=== PATIENT | male | born 1990 | race Caucasian/White ===

== ENCOUNTER 2023-07-03 16:29 | Observation (INO) ==
--- NOTE | 2023-07-03 17:39 | Emergency Department Note ---
History of Present Illness General Chief complaint: Skin Problem Stated complaint: BESHETS DISEASE/FLAIR, MOUTH/SKIN SORES, PEALING Time Seen by Provider: 07/03/23 17:25 History of Present Illness Maximum Pain Intensity: 6 This is a 32-year-old male that presents to the emergency department via private vehicle with complaints of "Behcet's disease/flare, mouth/skin ulcers/sores, peeling". 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 He states his first episode was at age 22, about 10 years ago. He states that initially he was evaluated and then subsequently sent to [facility] where he was hospitalized for about a week. Then, he notes a similar episode in 2020 and was evaluated in the [facility] system and states he was then formally diagnosed with Behcet's. He states he was fine up until 2 days ago he began with rash and sores in his mouth followed by genital area. He notes this is similar to previous about 10 years ago. However he notes this seems to be worsening now throughout the groin area as well as now on his arms, legs, abdomen, back and onto his face. He states he was at [place] emergency department about 2 days ago and started on oral prednisone. Last dose of prednisone was earlier today. He notes no improvement of symptoms, rather progression of symptoms. He denies any fevers but does note nausea and decreased appetite over the past few days. Patient denies any pertinent past medical history, surgeries or allergies. Patient denies any alcohol use. He denies any tobacco use other than vape. He denies any IV drug use. In reviewing analgesia options with the patient, I did review the patient's medication fill history and Suboxone was noted. I had a thorough review with the patient regarding this. He notes he was just released from incarceration about a week ago. He notes that he has not been on Suboxone for several days noting his nausea and unable to eat/drink secondary to his mouth sores. 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 Home Medications Medication Instructions Recorded Confirmed Type buprenorphine 8 mg-naloxone 2 mg 1 film sublingual BID 07/03/23 07/03/23 History sublingual film dextroamphetamine-amphetamine 20 20 mg PO BID 07/03/23 07/03/23 History mg tablet gabapentin 300 mg capsule 300 mg PO TID 07/03/23 07/03/23 History (Neurontin) guanfacine 2 mg tablet 2 mg PO BID 07/03/23 07/03/23 History oxcarbazepine 600 mg tablet 600 mg PO BID 07/03/23 07/03/23 History prednisone 20 mg tablet 60 mg PO DAILY 07/03/23 07/03/23 History Allergies Allergy/AdvReac Type Severity Reaction Status Date / Time tramadol [From Ultram] Allergy Intermediate HIVES/NAUSE Verified 07/03/23 19:32 A Past Med/Surg History Problem List (Updated 07/04/23 @ 00:46 by Francisco Wood PA-C) Skin lesions (Acute) Skin lesion Social History Smoking Status: Current every day smoker Tobacco Type: E-cigarettes / Vaping Second Hand Exposure: No; Do You Dip or Chew Tobacco: No; Hx Alcohol Use: No Hx Substance Use: Yes Last Used Substance: Days (ago) Substance Use Type Other:: Marijuana Vape Preferred Language: Upper Sorbian Communication Ability: Effective Grating Machine Operator Required: No Beliefs That Will Affect Care: None Current Living Situation: Significant Other Feels Safe at Home: Yes Safety Concerns: Feels Safe At This Time Assistive Devices: None Review of Systems A total of 10 systems reviewed and were otherwise negative Physical Exam Vital Signs Vital Signs - 24 hr 07/03/23 16:35 07/03/23 17:05 07/03/23 17:16 Temperature 36.6 C Temperature Source Temporal Artery Scan Pulse Rate 60 49 L Pulse Rate [Apical] 48 L Pulse Rhythm [Apical] Pulse Strength [Apical] Respiratory Rate 18 18 Respiratory Effort / Characteristics Non-Labored Non-Labored Spontaneous Respiratory Depth Normal Normal Respiratory Pattern Regular Regular Blood Pressure 120/74 Blood Pressure [Right Arm] 125/77 Blood Pressure Mean 89 Blood Pressure Mean [Right Arm] 93 Blood Pressure Position [Right Arm] Lying Pulse Oximetry 98 100 Oxygen Delivery Method Room Air Room Air Sepsis Recent Fever Within 48 Hours No Sepsis New/Unexplained Change in Mental Status N/A Sepsis Action Taken by Nursing No Action Required 07/03/23 18:33 07/03/23 20:00 Temperature Temperature Source Pulse Rate Pulse Rate [Apical] 51 L 48 L Pulse Rhythm [Apical] Regular Pulse Strength [Apical] Normal Respiratory Rate 18 16 Respiratory Effort / Characteristics Non-Labored Spontaneous Non-Labored Spontaneous Respiratory Depth Normal Normal Respiratory Pattern Regular Regular Blood Pressure Blood Pressure [Right Arm] 146/92 H 120/52 L Blood Pressure Mean Blood Pressure Mean [Right Arm] 110 74 Blood Pressure Position [Right Arm] Lying Pulse Oximetry 99 99 Oxygen Delivery Method Room Air Room Air Sepsis Recent Fever Within 48 Hours Sepsis New/Unexplained Change in Mental Status Sepsis Action Taken by Nursing VITAL SIGNS - Vital signs and nursing notes were reviewed. Borderline bradycardic at 49, otherwise stable. GENERAL -32-year-old male is appearing stated age who is in no acute distress. Communicates well with provider and answers questions appropriately. SKIN -erythematous, slightly raised diffuse regions overlying the penis, scrotum, bilateral inguinal regions extending to the thighs, rectal region. Smaller diffuse erythematous regions also present on the ventral forearms, medial feet/ankle regions, and a small area just to the lateral portion of the left eye. HEAD - NC/AT. EYES - PERRL with EOMI bilaterally. Sclera anicteric. EARS - No deformities of external structures noted on gross examination bilaterally. External auditory canals without discharge or otorrhea. Tympanic membranes pearly corona without retraction or bulging. No fluid or purulent material visualized behind the TM. Handle of malleus, umbo, cone of light, pars tensa/flaccid all easily visualized. NOSE - Midline and without cyanosis. No epistaxis or purulent drainage noted. Septum midline without deviation or septal hematoma noted. MOUTH/OROPHARYNX - Without perioral cyanosis. Buccal mucosa pink and moist and without leukoplakia. Tongue midline with equal elevation of palate bilaterally. No tonsillar hypertrophy, erythema, or exudates noted. Fair dentition noted. NECK - Neck with FROM. Supple to palpation. Mild bilateral lymphadenopathy noted. No nuchal rigidity. LUNGS - Chest wall symmetric without accessory muscle use, intercostals retractions, or central cyanosis. Normal vesicular breath sounds CTA B/L. No wheezes, rales, or rhonchi appreciated. CARDIAC - RRR with S1/S2. No murmur, rubs, or gallops appreciated. ABDOMEN - Abdominal contour normal without pulsations or visible masses. BS normoactive all four quadrants. No tenderness, palpable masses, hepatosplenomegaly, or ascites noted. EXTREMITIES - No clubbing or peripheral cyanosis. +5/5 strength noted in UE/LE bilaterally. NEUROLOGIC - Cranial nerves II through XII grossly intact. PSYCH - A&O, and cooperates fully with examiner. Pt is very pleasant and interacts well with examiner. Course Administered Medications Amphetamine/Dextroamphetamine (Dextroamphetamine/Amphetamine Ir 20 Mg Tab) 20 mg PO BID [facility] Stop: 07/17/23 22:46 Last Admin: 07/03/23 23:58 Dose: 20 mg Documented By: CHEN Buprenorphine/Naloxone (Buprenorphine/Naloxone 8/2 Mg Tab) 1 tab SL BID [facility] Stop: 08/02/23 22:46 Last Admin: 07/03/23 23:58 Dose: Not Given Documented By: CHEN Gabapentin (Gabapentin 300 Mg Cap) 300 mg PO TID [facility] Stop: 08/02/23 22:46 Last Admin: 07/03/23 23:43 Dose: 300 mg Documented By: CHEN Guanfacine HCl (Guanfacine Hcl 1 Mg Tab) 2 mg PO BID [facility] Stop: 08/02/23 22:46 Last Admin: 07/03/23 23:44 Dose: 2 mg Documented By: CHEN Hydromorphone HCl (Hydromorphone Inj 0.5 Mg/0.5 Ml Syr) 0.5 mg IV Q6H PRN PRN Reason: Severe Pain (Scale 7, 8, 9,10) Stop: 07/17/23 22:46 Last Admin: 07/03/23 23:58 Dose: 0.5 mg Documented By: CHEN Sodium Chloride (Nss) 1,000 mls @ 80 mls/hr IV .[id number] [facility] Stop: 07/04/23 11:16 Last Admin: 07/03/23 23:38 Dose: 80 mls/hr Documented By: CHEN Oxcarbazepine (Oxcarbazepine 150 Mg Tablet) 600 mg PO BID [facility] Stop: 08/02/23 22:46 Last Admin: 07/03/23 23:44 Dose: 600 mg Documented By: CHEN Triamcinolone Acetonide (Triamcinolone Acet 0.1% Cr 80 Gm Tube) 1 appln EXT BID [facility] Stop: 08/02/23 22:46 Last Admin: 07/03/23 23:42 Dose: 1 appln Documented By: CHEN Discontinued Medications Sodium Chloride (Nss) 1,000 mls @ 999 mls/hr IV .Q1H1M [facility] Stop: 07/03/23 18:45 Last Infusion: 07/03/23 19:34 Dose: Infused Documented By: Admin: 07/03/23 18:27 Dose: 999 mls/hr Documented By: CATIE Famotidine (Pepcid 20mg Iv Push) 20 mg in 5 mls @ 2.5 mls/min IV NOW STA Stop: 07/03/23 17:43 Last Admin: 07/03/23 18:26 Dose: 2.5 mls/min Documented By: CATIE Ceftriaxone Sodium (Rocephin) 2,000 mg in 50 mls @ 100 mls/hr IV NOW STA Stop: 07/03/23 19:50 Last Infusion: 07/03/23 20:20 Dose: Infused Documented By: Admin: 07/03/23 19:47 Dose: 100 mls/hr Documented By: BERNARDO Ketorolac Tromethamine (Ketorolac Tromethamine 15 Mg/Ml Vial) 10 mg IV NOW ONE Stop: 07/03/23 17:57 Last Admin: 07/03/23 18:25 Dose: 10 mg Documented By: CATIE Morphine Sulfate (Morphine Sulfate 4 Mg/Ml 1 Ml Carp\\Vial) 4 mg IV NOW STA Stop: 07/03/23 17:57 Last Admin: 07/03/23 18:26 Dose: 4 mg Documented By: CATIE Ondansetron HCl (Ondansetron Inj 2 Mg/Ml 2 Ml Vial) 4 mg IV NOW STA Stop: 07/03/23 17:57 Last Admin: 07/03/23 18:25 Dose: 4 mg Documented By: CATIE Medical Decision Making Laboratory Data 07/03/23 18:10 07/03/23 18:10 Lab Results 07/03/23 07/03/23 Range/Units 18:10 18:31 WBC 8.94 (4.8-10.8) K/ul RBC 4.43 L (4.70-6.10) M/uL Hgb 13.0 L (14.0-18.0) g/dl Hct 37.6 L (42.0-52.0) % MCV 84.9 (80.0-100.0) fL MCH 29.3 (25.0-34.0) pg MCHC 34.6 (32.0-36.0) g/dL RDW Std Deviation 41.4 (36.4-46.3) fL RDW Coeff of Lauro 13.2 (11.5-14.5) % Plt Count 267 (130-400) K/uL MPV 9.0 L (9.4-12.4) fL Immature Gran % (Auto) 0.3 % Neut % (Auto) 82.6 % Lymph % (Auto) 10.3 % [place] % (Auto) 6.6 % Eos % (Auto) 0.1 % Baso % (Auto) 0.1 % Neut # (Auto) 7.38 H (1.40-6.50) K/uL Lymph # (Auto) 0.92 L (1.20-3.40) K/uL [place] # (Auto) 0.59 (0.11-0.59) K/uL Eos # (Auto) 0.01 (0.00-0.50) K/uL Baso # (Auto) 0.01 (0.00-0.20) K/uL Immature Gran # (Auto) 0.03 (0.01-0.20) K/uL PT 10.9 (9.0-12.0) Seconds INR 1.0 (0.9-1.1) APTT 25 (21-31) Seconds PTT Ratio 0.9 Sodium 138 (136-145) mmol/L Potassium 3.6 (3.5-5.1) mmol/L Chloride 102 (98-107) mmol/L Carbon Dioxide 28 (21-32) mmol/L Anion Gap 8 (3-11) BUN 15 (6-23) mg/dl Creatinine 0.77 (0.6-1.4) mg/dl Est Cr Clr Drug Dosing 130.8 ml/min Est GFR ( Amer) 137.2 ml/min Est GFR (Non-Af Amer) 118.4 ml/min BUN/Creatinine Ratio 19.5 (10-20) Glucose 117 H (70-99(Fasting)) mg/dl Lactate 1.4 (0.4-2.0) mmol/L Calcium 9.4 (8.6-10.3) mg/dl Total Bilirubin 0.3 (0.2-1.0) mg/dl AST 21 (13-39) U/L ALT 34 (7-52) U/L Alkaline Phosphatase 60 (34-104) U/L Total Protein 7.1 (6.0-8.3) gm/dl Albumin 4.7 (3.4-5.0) gm/dl Globulin 2.4 L (2.5-4.0) gm/dl Albumin/Globulin Ratio 2.0 (0.9-2) Procalcitonin 0.02 (0-0.5) ng/ml Urine Color Yellow Urine Appearance Clear (Clear) Urine pH 7.0 (4.5-7.5) Ur Specific [place] 1.011 (1.000-1.030) Urine Protein Negative (Negative) Urine Glucose (UA) Negative (Negative) Urine Ketones Negative (Negative) Urine Blood Negative (Negative) Urine Nitrite Negative (Negative) Urine Bilirubin Negative (Negative) Urine Urobilinogen Negative (Negative) Ur Leukocyte Esterase Negative (Negative) Adenovirus (PCR) Not Detected (NotDetected) B. pertussis DNA (PCR) Not Detected (NotDetected) B.parapertussis DNA PCR Not Detected (NotDetected) Lyme Disease Screen Negative (Negative) C. pneumoniae DNA (PCR) Not Detected (NotDetected) Coronavirus OC43 (PCR) Not Detected (NotDetected) Coronavirus HKU1 (PCR) Not Detected (NotDetected) Coronavirus 229E (PCR) Not Detected (NotDetected) SARS-CoV-2 (PCR) Not Detected (NotDetected) Coronavirus NL63 (PCR) Not Detected (NotDetected) Human Metapneumovir PCR Not Detected (NotDetected) Influenza Type A (PCR) Not Detected (NotDetected) Influenza Type B (PCR) Not Detected (NotDetected) M. pneumoniae (PCR) Not Detected (NotDetected) Parainfluenza 1 (PCR) Not Detected (NotDetected) Parainfluenza 2 (PCR) Not Detected (NotDetected) Parainfluenza 3 (PCR) Not Detected (NotDetected) Parainfluenza 4 (PCR) Not Detected (NotDetected) RSV (PCR) Not Detected (NotDetected) Entero/Rhino (PCR) Not Detected (NotDetected) MDM Narrative Patient was seen and evaluated as above in room B09. Review was performed of triage nursing notes and vital signs. No previous visits for review in the EMR at time of evaluation. Patient presents to us today for evaluation of erythematous rashes in the groin area, mouth, as well as on the extremities involving also abdomen/back. He notes a history of Behcet's and this feels similar but perhaps worse than his previous. He was started on prednisone about 2 days ago at [place] [facility] and notes worsening symptoms. I did list the help of our network account manager to try and access the [facility] record regarding the patient's inpatient hospitalization about 10 years ago. Unfortunately as of 1830 p.m. on 07/03/2023 they note that the remote access to the [employer] system at this time is still down and not able to be accessed. Later in the patient stay was able to access the record and did review patient's visit from May 27 when he was seen for similar at [facility]. There is no formal diagnosis seen in the EMR at that time for Behcet's. Patient states that it was later when symptoms occurred again in 2020 in the [facility] system that he was formally diagnosed. Patient appears to be on a regimen currently of dextroamphetamineamphetamine, gabapentin, guanfacine, hydroxyzine, oxcarbazepine as well as recent addition of prednisone. There is buprenorphinenaloxone films noted with a fill date of 06-28-2023 but the patient notes he has not taken this over the past few days secondary to his nausea and upset stomach with the associated rash that he believes is secondary to underlying Behcet's. I had a lengthy discussion with the patient regarding analgesia options. At this time through shared decision making we will proceed with IV Toradol, IV morphine, he was also given IV Pepcid noting the recent steroid use and medications today. Patient was hydrated with IV fluids. He was given IV Zofran for nausea. Labs reveal no leukocytosis. Minor anemia noted with hemoglobin 13.0. Coags normal. No emergent metabolic disturbance. Mild hyperglycemia 117 procal 0.02. Lactate normal. Urinalysis negative for infection. Bio fire panel negative. Consent was obtained from the patient and with male marble rubber Valentin VELAZQUEZ present the genital area was further visually inspected and there was a lesion to the right midshaft region of the penis. This is more of an ulcerative type lesion and was swabbed and sent for HSV culture/type. Test pending at this time. Blood cultures pending as well. I am also concerned about a secondary bacterial infection in the groin area therefore we will start the patient on IV ceftriaxone. No evidence for SJS/TENS at the present time. This certainly may be Behcet's. No evidence of Jackelin gangrene at the present time. At this time I do believe that further evaluation and management is warranted in the inpatient setting. Case discussed with the hospitalist service. Please refer to further documentation regarding his stay. Case was discussed with the attending physician. GCS: 15 In the evaluation and treatment of this patient the following differential diagnoses were entertained: Herpes, zoster, SJS, TENS, cellulitis, fungal infection, Bechet's, among others. Impression & Plan Skin lesions Discharge Plan Visit Data Chief Complaint: Skin Problem Stated Complaint: BESHETS DISEASE/FLAIR, MOUTH/SKIN SORES, PEALING ED Provider: Juanita Rodriguez ED Midlevel Provider: Francisco Wood Discharge Problem: Skin lesions Patient Disposition: Admitted As Inpatient Condition: Good Discharge Instructions Interventions: ED Discharge Assessment Last Done: 07/03/23 21:58
[2023-07-03 18:25] LABS: Basophils # (auto) 0.01 K/uL (0.00-0.20); Basophils % (auto) 0.1 %; Eosinophils # (auto) 0.01 K/uL (0.00-0.50); Eosinophils % (auto) 0.1 %; Hematocrit (blood only) 37.6 % (42.0-52.0); Immature Granulocytes # (auto) 0.03 K/uL (0.01-0.20); Immature Granulocytes % (auto) 0.3 %; Lymphocytes # (auto) 0.92 K/uL (1.20-3.40); Lymphocytes % (auto) 10.3 %; Mean Corpuscular Hemoglobin 29.3 pg (25.0-34.0); Mean Corpuscular Hgb Conc 34.6 g/dL (32.0-36.0); Mean Corpuscular Volume 84.9 fL (80.0-100.0); Monocytes # (auto) 0.59 K/uL (0.11-0.59); Monocytes % (auto) 6.6 %; Neutrophils # (auto) 7.38 K/uL (1.40-6.50); Neutrophils % (auto) 82.6 %; Platelet Count 267 K/uL (130-400); RDW Coefficient of Variation 13.2 % (11.5-14.5); RDW Standard Deviation 41.4 fL (36.4-46.3); Red Blood Count 4.43 M/uL (4.70-6.10); White Blood Count 8.94 K/ul (4.8-10.8)
[2023-07-03] MEDS: KETOROLAC TROMETHAMINE 15 MG/ML VIAL IV ONE (18:25)
[2023-07-03] MEDS: ONDANSETRON INJ 2 MG/ML 2 ML VIAL IV STA (18:25)
[2023-07-03] MEDS: FAMOTIDINE 20MG IV PUSH 20 MG/5 ML SYR IV STA (18:26)
[2023-07-03] MEDS: MoRPHine SULFATE 4 MG/ML 1 ML CARP\\VIAL IV STA (18:26)
[2023-07-03] MEDS: SODIUM CHLORIDE 0.9% 1,000 ML IV SCH ×2 (18:27→23:38)
[2023-07-03 18:41] LABS: Albumin Level 4.7 gm/dl (3.4-5.0); BUN Creatinine Ratio 19.5 (10-20); Bilirubin,Total 0.3 mg/dl (0.2-1.0); Calcium 9.4 mg/dl (8.6-10.3); Creatinine Clr Calc Pharmacy 130.8 ml/min; Est GFR (African American) 137.2 ml/min; Est GFR (Non-African American) 118.4 ml/min; Globulin 2.4 gm/dl (2.5-4.0); Potassium 3.6 mmol/L (3.5-5.1); Total Protein 7.1 gm/dl (6.0-8.3)
[2023-07-03 18:42] LABS: Appearance Urine Clear (Clear); Bilirubin Urine Negative (Negative); Blood Urine Negative (Negative); Color Urine Yellow; Glucose Urine UA Negative (Negative); Ketones Urine Negative (Negative); Leukocyte Esterase Urine Negative (Negative); Nitrite Urine Negative (Negative); Protein Urine Negative (Negative); Specific Gravity Urine 1.011 (1.000-1.030); Urobilinogen Urine Negative (Negative)
[2023-07-03 18:48] LABS: Procalcitonin 0.02 ng/ml (0-0.5)
[2023-07-03 18:56] LABS: Partial Thromboplastin Ratio 0.9; Partial Thromboplastin Time 25 Seconds (21-31); Prothrombin Time 10.9 Seconds (9.0-12.0)
[2023-07-03 19:14] LABS: Lyme Screen Rflx Confirmation Negative (Negative)
[2023-07-03 19:29] LABS: Adenovirus PCR Not Detected (NotDetected); Bordetella parapertussis PCR Not Detected (NotDetected); Bordetella pertussis PCR Not Detected (NotDetected); Chlamydia pneumoniae PCR Not Detected (NotDetected); Coronavirus 229E PCR Not Detected (NotDetected); Coronavirus CoV-2 (COVID19)PCR Not Detected (NotDetected); Coronavirus HKU1 PCR Not Detected (NotDetected); Coronavirus NL63 PCR Not Detected (NotDetected); Coronavirus OC43PCR Not Detected (NotDetected); Human Metapneumovirus PCR Not Detected (NotDetected); Influenza A PCR Not Detected (NotDetected); Influenza B PCR Not Detected (NotDetected); Mycoplasma pneumoniae PCR Not Detected (NotDetected); Parainfluenza Virus 1 PCR Not Detected (NotDetected); Parainfluenza Virus 2 PCR Not Detected (NotDetected); Parainfluenza Virus 3 PCR Not Detected (NotDetected); Parainfluenza Virus 4 PCR Not Detected (NotDetected); Respiratory Syncytial VirusPCR Not Detected (NotDetected); Rhinovirus/Enterovirus PCR Not Detected (NotDetected)
[2023-07-03] MEDS: cefTRIAXone SODIUM 2,000 MG/50 ML BAG IV STA (19:47)
--- NOTE | 2023-07-03 21:26 | History & Physical Report ---
Date of Service July 03, 2023 Assessment & Plan (1) Skin lesion: Plan: 32-year-old male with past medical history significant for stomatitis and mucositis, attention deficit disorder without hyperactivity, bipolar 1 disorder, with episode of depression, in 2013 patient was in the [place] for about a week for oral, genital and anal ulceration as well as rash on the abdomen, per rectally and in the inguinal creases. At the time workup with HSV, VZV PCR was negative and HIV was negative. BENJAMIN, anti-smooth muscle, antimitochondrial chondral negative, was treated with triamcinolone 0.1% ointment and rash also resolved. As per Dermatology notes at the time he had 4-5 outbreaks similar to this when he was 13 years old. As per dermatology notes at that time etiology was unclear. There was a thought that Behcet's was possibility and advised to return for another episode. And patient states had another episode in 2020 and but he went to [facility] because it was closer to him and he stated he was not diagnosed at that time. He was in senior living and was discharged from senior living 1 week ago. Since last 2 days again he developed oral lesions and also rash in the genital region and blotches in his extremities. He went to [facility] and was prescribed prednisone. Started prednisone but the rashes did not improve but got worse so she so he came here. Last time when he was in [place] he had painful bowel movements and odynophagia but right now he did not have those symptoms. He is able to eat okay. But he thinks the rash is worse. Denies any fevers. Micturating okay. Normal bowel movements. Denies blood in the stools. No abdominal pain. No chest pain or shortness of breath. No headache. No dizziness. No blurred visions. No earache or runny nose or sore throat. No cough. No nausea. Resting comfortably and hemodynamically stable.Patient denies any IV drug abuse. Patient is not concerned of any STDs. Skin lesions mainly involving genital region and also having oral lesions erythematous rash involving the genital region extending into the perianal region with some ulcers seen. blotches of erythematous rash also seen in lower extremities. had similar episode in 2013 and was in [place] and workup as mentioned HAP was unremarkable. There was consideration of Behcet's. States he had another episode in 2020. Went to [facility] and was prescribed prednisone but is not helping currently. Possible superimposed bacterial infection ,ER started Rocephin will be continued. ER sent for HSV studies which will be followed . Continue with prednisone. Triamcinolone cream skin and oral. Dermatology/ rheumatolgy consult for further recommendations. Monitor for response. Attention deficit disorder without hyperactivity. Bipolar disorder with episode of depression continue home medications DVT prophylaxis Lovenox disposition medical floor. History of Present Illness Chief Complaint: skin and oral lesions Primary Care Provider: ARIAS PCP 32-year-old male with past medical history significant for stomatitis and mucositis, attention deficit disorder without hyperactivity, bipolar 1 disorder, with episode of depression, in 2013 patient was in the [place] for about a week for oral, genital and anal ulceration as well as rash on the abdomen, per rectally and in the inguinal creases. At the time workup with HSV, VZV PCR was negative and HIV was negative. BENJAMIN, anti-smooth muscle, antimitochondrial chondral negative, was treated with triamcinolone 0.1% ointment and rash also resolved. As per Dermatology notes at the time he had 4-5 outbreaks similar to this when he was 13 years old. As per dermatology notes at that time etiology was unclear. There was a thought that Behcet's was possibility and advised to return for another episode. And patient states had another episode in 2020 and but he went to [facility] because it was closer to him and he stated he was not diagnosed at that time. He was in senior living and was discharged from senior living 1 week ago. Since last 2 days again he developed oral lesions and also rash in the genital region and blotches in his extremities. He went to [facility] and was prescribed prednisone. Started prednisone but the rashes did not improve but got worse so she so he came here. Last time when he was in [place] he had painful bowel movements and odynophagia but right now he did not have those symptoms. He is able to eat okay. But he thinks the rash is worse. Denies any fevers. Micturating okay. Normal bowel movements. Denies blood in the stools. No abdominal pain. No chest pain or shortness of breath. No heada brenna. No dizziness. No blurred visions. No earache or runny nose or sore throat. No cough. No nausea. Resting comfortably and hemodynamically stable.Patient denies any IV drug abuse. Patient is not concerned of any STDs. Past med history. As mentioned above past surgical history. States recently had a biopsy of bladder cyst and waiting for results. EGD with endoscopic ultrasound. Social history. states currently Not smoking. Currently vapes nicotine. Denies alcohol use. States he used to abuse opioids in the past but not since last 8 years. family history. Paternal grandmother had hypertension. Allergies Allergy/AdvReac Type Severity Reaction Status Date / Time tramadol [From Ultram] Allergy Intermediate HIVES/NAUSE Verified 07/03/23 19:32 A Home Medications Medication Instructions Recorded Confirmed Type buprenorphine 8 mg-naloxone 2 mg 1 film sublingual BID 07/03/23 07/03/23 History sublingual film dextroamphetamine-amphetamine 20 20 mg PO BID 07/03/23 07/03/23 History mg tablet gabapentin 300 mg capsule 300 mg PO TID 07/03/23 07/03/23 History (Neurontin) guanfacine 2 mg tablet 2 mg PO BID 07/03/23 07/03/23 History oxcarbazepine 600 mg tablet 600 mg PO BID 07/03/23 07/03/23 History prednisone 20 mg tablet 60 mg PO DAILY 07/03/23 07/03/23 History Past Med/Surg History Problem List (Updated 07/04/23 @ 00:46 by Francisco Wood PA-C) Skin lesions (Acute) Skin lesion Social History Smoking Status: Current every day smoker Tobacco Type: E-cigarettes / Vaping Second Hand Exposure: No; Do You Dip or Chew Tobacco: No; Hx Alcohol Use: No Hx Substance Use: Yes Last Used Substance: Days (ago) Substance Use Type Other:: Marijuana Vape Preferred Language: Romanian Communication Ability: Effective Outsole Beveler Required: No Beliefs That Will Affect Care: None Current Living Situation: Significant Other Feels Safe at Home: Yes Safety Concerns: Feels Safe At This Time Assistive Devices: None Review of Systems Review of Systems: All systems reviewed & are unremarkable except as noted in HPI & below Physical Exam Physical Exam: General- Not in distress Head- atraumatic Eyes- PERRL. ENT- oropharynx erythematous lesions seen o roof of the mouth Neck- supple, no JVD. Lungs- clear to auscultation no wheezing or crackles Heart- regular rhythm; no murmur, no gallop. Abdomen- normal bowel sounds, soft, nontender, no distensions Extremities- no pretibial edema, blotches of erythematous rash seen on feet and thigh region Neuro- alert, oriented ; PERRL, no facial palsy; no dysarthria; moves extremities. Skin- erythematous rash seen in groin and perineal/perianal region involving genital region with some ulcers seen. Blotches of erythematous rash seen on feet and thigh region Results & Data Results & Data Vital Signs (Past 12 Hours) Vital Signs Temp Pulse Pulse Resp BP BP Pulse Ox 07/03/23 20:00 48 L 16 120/52 L 99 07/03/23 18:33 51 L 18 146/92 H 99 07/03/23 17:16 49 L 07/03/23 17:05 48 L 18 125/77 100 07/03/23 16:35 36.6 C 60 18 120/74 98 O2 Del Method 07/03/23 20:00 Room Air 07/03/23 18:33 Room Air 07/03/23 17:16 07/03/23 17:05 Room Air 07/03/23 16:35 Room Air Diagnostic Findings Laboratory Results WBC 8.94 K/ul (4.8-10.8) 07/03/23 18:10 RBC 4.43 M/uL (4.70-6.10) L 07/03/23 18:10 Hgb 13.0 g/dl (14.0-18.0) L 07/03/23 18:10 Hct 37.6 % (42.0-52.0) L 07/03/23 18:10 MCV 84.9 fL (80.0-100.0) 07/03/23 18:10 MCH 29.3 pg (25.0-34.0) 07/03/23 18:10 MCHC 34.6 g/dL (32.0-36.0) 07/03/23 18:10 RDW Std Deviation 41.4 fL (36.4-46.3) 07/03/23 18:10 RDW Coeff of Lauro 13.2 % (11.5-14.5) 07/03/23 18:10 Plt Count 267 K/uL (130-400) 07/03/23 18:10 MPV 9.0 fL (9.4-12.4) L 07/03/23 18:10 Immature Gran % (Auto) 0.3 % 07/03/23 18:10 Neut % (Auto) 82.6 % 07/03/23 18:10 Lymph % (Auto) 10.3 % 07/03/23 18:10 [place] % (Auto) 6.6 % 07/03/23 18:10 Eos % (Auto) 0.1 % 07/03/23 18:10 Baso % (Auto) 0.1 % 07/03/23 18:10 Neut # (Auto) 7.38 K/uL (1.40-6.50) H 07/03/23 18:10 Lymph # (Auto) 0.92 K/uL (1.20-3.40) L 07/03/23 18:10 [place] # (Auto) 0.59 K/uL (0.11-0.59) 07/03/23 18:10 Eos # (Auto) 0.01 K/uL (0.00-0.50) 07/03/23 18:10 Baso # (Auto) 0.01 K/uL (0.00-0.20) 07/03/23 18:10 Immature Gran # (Auto) 0.03 K/uL (0.01-0.20) 07/03/23 18:10 PT 10.9 Seconds (9.0-12.0) 07/03/23 18:10 INR 1.0 (0.9-1.1) 07/03/23 18:10 APTT 25 Seconds (21-31) 07/03/23 18:10 PTT Ratio 0.9 07/03/23 18:10 Sodium 138 mmol/L (136-145) 07/03/23 18:10 Potassium 3.6 mmol/L (3.5-5.1) 07/03/23 18:10 Chloride 102 mmol/L (98-107) 07/03/23 18:10 Carbon Dioxide 28 mmol/L (21-32) 07/03/23 18:10 Anion Gap 8 (3-11) 07/03/23 18:10 BUN 15 mg/dl (6-23) 07/03/23 18:10 Creatinine 0.77 mg/dl (0.6-1.4) 07/03/23 18:10 Est Cr Clr Drug Dosing 130.8 ml/min 07/03/23 18:10 Est GFR ( Amer) 137.2 ml/min 07/03/23 18:10 Est GFR (Non-Af Amer) 118.4 ml/min 07/03/23 18:10 BUN/Creatinine Ratio 19.5 (10-20) 07/03/23 18:10 Glucose 117 mg/dl (70-99(Fasting)) H 07/03/23 18:10 Lactate 1.4 mmol/L (0.4-2.0) 07/03/23 18:10 Calcium 9.4 mg/dl (8.6-10.3) 07/03/23 18:10 Total Bilirubin 0.3 mg/dl (0.2-1.0) 07/03/23 18:10 AST 21 U/L (13-39) 07/03/23 18:10 ALT 34 U/L (7-52) 07/03/23 18:10 Alkaline Phosphatase 60 U/L (34-104) 07/03/23 18:10 Total Protein 7.1 gm/dl (6.0-8.3) 07/03/23 18:10 Albumin 4.7 gm/dl (3.4-5.0) 07/03/23 18:10 Globulin 2.4 gm/dl (2.5-4.0) L 07/03/23 18:10 Albumin/Globulin Ratio 2.0 (0.9-2) 07/03/23 18:10 Procalcitonin 0.02 ng/ml (0-0.5) 07/03/23 18:10 Urine Color Yellow 07/03/23 18:31 Urine Appearance Clear (Clear) 07/03/23 18:31 Urine pH 7.0 (4.5-7.5) 07/03/23 18:31 Ur Specific [place] 1.011 (1.000-1.030) 07/03/23 18:31 Urine Protein Negative (Negative) 07/03/23 18:31 Urine Glucose (UA) Negative (Negative) 07/03/23 18:31 Urine Ketones Negative (Negative) 07/03/23 18:31 Urine Blood Negative (Negative) 07/03/23 18: Urine Nitrite Negative (Negative) 07/03/23 18:31 Urine Bilirubin Negative (Negative) 07/03/23 18:31 Urine Urobilinogen Negative (Negative) 07/03/23 18:31 Ur Leukocyte Esterase Negative (Negative) 07/03/23 18:31 Adenovirus (PCR) Not Detected (NotDetected) 07/03/23 18:31 B. pertussis DNA (PCR) Not Detected (NotDetected) 07/03/23 18:31 B.parapertussis DNA PCR Not Detected (NotDetected) 07/03/23 18:31 Lyme Disease Screen Negative (Negative) 07/03/23 18:10 C. pneumoniae DNA (PCR) Not Detected (NotDetected) 07/03/23 18:31 Coronavirus OC43 (PCR) Not Detected (NotDetected) 07/03/23 18:31 Coronavirus HKU1 (PCR) Not Detected (NotDetected) 07/03/23 18:31 Coronavirus 229E (PCR) Not Detected (NotDetected) 07/03/23 18:31 SARS-CoV-2 (PCR) Not Detected (NotDetected) 07/03/23 18:31 Coronavirus NL63 (PCR) Not Detected (NotDetected) 07/03/23 18:31 Human Metapneumovir PCR Not Detected (NotDetected) 07/03/23 18:31 Influenza Type A (PCR) Not Detected (NotDetected) 07/03/23 18:31 Influenza Type B (PCR) Not Detected (NotDetected) 07/03/23 18:31 M. pneumoniae (PCR) Not Detected (NotDetected) 07/03/23 18:31 Parainfluenza 1 (PCR) Not Detected (NotDetected) 07/03/23 18:31 Parainfluenza 2 (PCR) Not Detected (NotDetected) 07/03/23 18:31 Parainfluenza 3 (PCR) Not Detected (NotDetected) 07/03/23 18:31 Parainfluenza 4 (PCR) Not Detected (NotDetected) 07/03/23 18:31 RSV (PCR) Not Detected (NotDetected) 07/03/23 18:31 Entero/Rhino (PCR) Not Detected (NotDetected) 07/03/23 18:31 Code Status & VTE Plan VTE Prophylaxis Plan VTE Prophylaxis will be ordered: Yes
[2023-07-03] MEDS ORDERED: POLYETHYLENE (MIRALAX) 17 GM PACK PO PRN (22:47)
[2023-07-03] MEDS ORDERED: ACETAMINOPHEN 325 MG TAB PO PRN (22:47)
[2023-07-03] MEDS: TRIAMCINOLONE ACET 0.1% CR 80 GM TUBE EXT SCH (23:42)
[2023-07-03] MEDS: GABAPENTIN 300 MG CAP PO SCH (23:43)
[2023-07-03] MEDS: guanFACINE HCL 1 MG TAB PO SCH (23:44)
[2023-07-03] MEDS: OXcarbazepine 150 MG TABLET PO SCH (23:44)
[2023-07-03] MEDS: DEXTROAMPHETAMINE/AMPHETAMINE IR 20 MG TAB PO SCH (23:58)
[2023-07-03] MEDS: HYDROmorphone INJ 0.5 MG/0.5 ML SYR IV PRN (23:58)
[2023-07-03] MEDS: BUPRENORPHINE/NALOXONE 8/2 MG TAB SL SCH (23:58)
[2023-07-04 06:18] LABS: Basophils # (auto) 0.02 K/uL (0.00-0.20); Basophils % (auto) 0.2 %; Eosinophils # (auto) 0.33 K/uL (0.00-0.50); Eosinophils % (auto) 3.4 %; Hematocrit (blood only) 33.1 % (42.0-52.0); Hemoglobin 11.2 g/dl (14.0-18.0); Immature Granulocytes # (auto) 0.02 K/uL (0.01-0.20); Immature Granulocytes % (auto) 0.2 %; Lymphocytes # (auto) 2.46 K/uL (1.20-3.40); Lymphocytes % (auto) 25.5 %; Mean Corpuscular Hemoglobin 28.8 pg (25.0-34.0); Mean Corpuscular Hgb Conc 33.8 g/dL (32.0-36.0); Mean Corpuscular Volume 85.1 fL (80.0-100.0); Mean Platelet Volume 9.5 fL (9.4-12.4); Monocytes # (auto) 1.14 K/uL (0.11-0.59); Monocytes % (auto) 11.8 %; Neutrophils # (auto) 5.68 K/uL (1.40-6.50); Neutrophils % (auto) 58.9 %; Platelet Count 245 K/uL (130-400); RDW Coefficient of Variation 13.2 % (11.5-14.5); RDW Standard Deviation 41.6 fL (36.4-46.3); Red Blood Count 3.89 M/uL (4.70-6.10); White Blood Count 9.65 K/ul (4.8-10.8)
[2023-07-04 06:29] LABS: BUN Creatinine Ratio 18.8 (10-20); Calcium 8.6 mg/dl (8.6-10.3); Creatinine Clr Calc Pharmacy 125.9 ml/min; Est GFR (African American) 135.1 ml/min; Est GFR (Non-African American) 116.6 ml/min; Magnesium 1.6 mg/dl (1.7-2.4); Potassium 3.5 mmol/L (3.5-5.1)
[2023-07-04] MEDS: ENOXAPARIN INJ 40 MG/0.4 ML SYR SQ SCH (07:53)
[2023-07-04] MEDS: predniSONE 20 MG TAB PO SCH (07:54)
[2023-07-04] MEDS: TRIAMCINOLONE ACET 0.1% ORABASE 5 GM TUBE MT SCH (07:56)
[2023-07-04] MEDS ORDERED: COLCHICINE 0.6 MG TAB PO SCH (09:30)
--- NOTE | 2023-07-04 12:03 | Discharge Summary ---
Discharge Summary Date of Service July 04, 2023 Notes For Next Care Provider Medication Changes From Visit -Colchicine 0.6 mg two times a day -Triamcinolone cream, please apply thin layer to lesions on skin -Triamcinolone dental paste, please apply to mouth lesions at bedtime -Dexamethasone swish a spit, please use as needed limiting to no more than 3 times a day -Topical lidocaine, please apply small amount to lesions (1-2 hours after topical steroid) for further pain relief -Keflex 1 tablet two times daily for superficial infection, take until all tablets are complete -Recommend over the counter Lotrimin or athlete's foot cream (clotrimazole or te rbinafine) for area of irritation on foot Please discontinue oral prednisone Admission HPI Per Admitting Provider 32-year-old male with past medical history significant for stomatitis and mucositis, attention deficit disorder without hyperactivity, bipolar 1 disorder, with episode of depression, in 2013 patient was in the [place] for about a week for oral, genital and anal ulceration as well as rash on the abdomen, per rectally and in the inguinal creases. At the time workup with HSV, VZV PCR was negative and HIV was negative. BENJAMIN, anti-smooth muscle, antimitochondrial chondral negative, was treated with triamcinolone 0.1% ointment and rash also resolved. As per Dermatology notes at the time he had 4-5 outbreaks similar to this when he was 13 years old. As per dermatology notes at that time etiology was unclear. There was a thought that Behcet's was possibility and advised to return for another episode. And patient states had another episode in 2020 and but he went to [facility] because it was closer to him and he stated he was not diagnosed at that time. He was in snf and was discharged from snf 1 week ago. Since last 2 days again he developed oral lesions and also rash in the genital region and blotches in his extremities. He went to [facility] and was prescribed prednisone. Started prednisone but the rashes did not improve but got worse so she so he came here. Last time when he was in [place] he had painful bowel movements and odynophagia but right now he did not have those symptoms. He is able to eat okay. But he thinks the rash is worse. Denies any fevers. Micturating okay. Normal bowel movements. Denies blood in the stools. No abdominal pain. No chest pain or shortness of breath. No headache. No dizziness. No blurred visions. No earache or runny nose or sore throat. No cough. No nausea. Resting comfortably and hemodynamically stable.Patient denies any IV drug abuse. Patient is not concerned of any STDs. Past med history. As mentioned above past surgical history. States recently had a biopsy of bladder cyst and wait ing for results. EGD with endoscopic ultrasound. Social history. states currently Not smoking. Currently vapes nicotine. Denies alcohol use. States he used to abuse opioids in the past but not since last 8 years. family history. Paternal grandmother had hypertension. Admission Exam Per Admitting Provider General- Not in distress Head- atraumatic Eyes- PERRL. ENT- oropharynx erythematous lesions seen o roof of the mouth Neck- supple, no JVD. Lungs- clear to auscultation no wheezing or crackles Heart- regular rhythm; no murmur, no gallop. Abdomen- normal bowel sounds, soft, nontender, no distensions Extremities- no pretibial edema, blotches of erythematous rash seen on feet and thigh region Neuro- alert, oriented ; PERRL, no facial palsy; no dysarthria; moves extremities. Skin- erythematous rash seen in groin and perineal/perianal region involving genital region with some ulcers seen. Blotches of erythematous rash seen on feet and thigh region Principal Dx & Hospital Course #1 = Principal Diagnosis (1) Skin lesion: Mr Weinberg is a 32-year-old male with past medical history significant for stomatitis and mucositis, attention deficit disorder without hyperactivity, bipolar 1 disorder, with episode of depression, and concern for Behcet's disease who is admitted for worsening aphthous ulcers of mouth/genitals. Per admitting hospitalist, "in 2013 patient was in the [place] for about a week for oral, genital and anal ulceration as well as rash on the abdomen, per rectally and in the inguinal creases. At the time workup with HSV, VZV PCR was negative and HIV was negative. BENJAMIN, anti-smooth muscle, antimitochondrial chondral negative, was treated with triamcinolone 0.1% ointment and rash also resolved. As per Dermatology notes at the time he had 4-5 outbreaks similar to this when he was 13 years old. As per dermatology notes at that time etiology was unclear. There was a thought that Behcet's was possibility and advised to return for another episode. And patient states had another episode in 2020 and but he went to [facility] because it was closer to him and he stated he was not diagnosed at that time. He was in snf and was discharged from snf 1 week ago. Since last 2 days again he developed oral lesions and also rash in the genital region and blotches in his extremities. He went to [facility] and was prescribed prednisone. Started prednisone but the rashes did not improve but got worse so she so he came here. Last time when he was in [place] he had painful bowel movements and odynophagia but right now he did not have those symptoms. He is able to eat okay. But he thinks the rash is worse. Denies any fevers. Micturating okay. Normal bowel movements. Denies blood in the stools. No abdominal pain. No chest pain or shortness of breath. No headache. No dizziness. No blurred visions. No earache or runny nose or sore throat. No cough. No nausea. Resting comfortably and hemodynamically stable.Patient denies any IV drug abuse. Patient is not concerned of any STDs." Dr. Murphy Avitia, Rheumatology, was contacted about case. Discussion of patient's symptoms and presentation was had. He recommended continuing triamcinolone topical as well as starting colchicine 0.6mg BID. Rheumatology will coordinate follow up appointment within a week with the patient. #Behcet's Disease, recurrent #Multiple aphtous ulcers of mouth/gentialia #Neuropathy erythematous rash involving the genital region extending into the perianal region with some ulcers seen. blotches of erythematous rash also seen in lower extremities. had similar episode in 2013 and was in [place] and workup as mentioned HAP was unremarkable. There was consideration of Behcet's. States he had another episode in 2020. Discontinued prednisone Start colchicine 0/6mg BID Continue triamcinolone topical Sent dexamethsone swish/spit given patient not sure if he can tolerate the texteure of dental paste -dental paste sent for qhs placement Keflex bid for 7 days for concren of superimposed cellulitis Recommended topical antifungal for foot concern Short course of PO oxycodone---patient with extensive open lesions in gluteal cleft/scrotum and pain management essential given areas of high friction, also prescribed topical lidocaine to aid in analgesia Follow up with Dr. Murphy Avitia OP On day of discharge, patient adamant to get home. Plan discussed in depth with patient. He verbalized understanding and reports eagerness to establish with [facility]. (2) Behcet recurrent disease: Discharge Exam ENMT multiple scattered lesions in mouth, on gums Cardiovascular RRR, no murmur, no edema Gastrointestinal (Abdomen) normal bowel sounds, soft, nontender, no hepatosplenomegaly Skin erythematous/violaceous lesions with ulceration of gluteal cleft extending to perinum and scrotum, lesions in inguinal folds Updated Medication List Medication Instructions Recorded Confirmed Type buprenorphine 8 mg-naloxone 2 mg 1 film sublingual BID 07/03/23 07/03/23 History sublingual film dextroamphetamine-amphetamine 20 20 mg PO BID 07/03/23 07/03/23 History mg tablet gabapentin 300 mg capsule 300 mg PO TID 07/03/23 07/03/23 History (Neurontin) guanfacine 2 mg tablet 2 mg PO BID 07/03/23 07/03/23 History oxcarbazepine 600 mg tablet 600 mg PO BID 07/03/23 07/03/23 History cephalexin 500 mg capsule 500 mg PO BID 7 days #14 caps 07/04/23 Rx colchicine 0.6 mg tablet (Colcrys) 0.6 mg PO BID #60 tabs 07/04/23 Rx dexamethasone 0.5 mg/5 mL oral 0.5 mg (5 mL) PO BID PRN mouth 07/04/23 Rx elixir sores #237 mL lidocaine 5 % topical ointment 1 applic topical BID 7 days #35.44 07/04/23 Rx grams oxycodone 10 mg tablet 10 mg PO Q12H #8 tabs 07/04/23 Rx triamcinolone acetonide 0.1 % 0.6 cm dental TID #5 grams 07/04/23 Rx dental paste triamcinolone acetonide 0.1 % 1 applic EXT QID #80 grams 07/04/23 Rx topical cream Hospital Stay Data Consultations 07/03/23 19:26 ED Decision to Admit Stat 07/04/23 09:15 Consult Rheumatology Routine Pending Results Patient Have Any Pending Studies at Discharge: No Discharge Instructions Given to Patient (Per Discharging Provider) You were admitted for acute flare of Behcet's disease. Discussion was had with Rheumatology, Dr Asad Avitia, who will work closely with you to help manage symptoms. His office will reach out to schedule with you. You will start the following: -Colchicine 0.6 mg two times a day -Triamcinolone cream, please apply thin layer to lesions on skin -Triamcinolone dental paste, please apply to mouth lesions at bedtime -Dexamethasone swish a spit, please use as needed limiting to no more than 3 times a day -Topical lidocaine, please apply small amount to lesions (1-2 hours after topical steroid) for further pain relief -Keflex 1 tablet two times daily for superficial infection, take until all tablets are complete -Recommend over the counter Lotrimin or athlete's foot cream (clotrimazole or terbinafine) for area of irritation on foot Please discontinue oral prednisone Total Time Total Time Spent Total Time Spent (In Minutes): 45
[2023-07-04] MEDS ORDERED: cefTRIAXone SODIUM 2,000 MG/50 ML BAG IV SCH (19:30)
== END 2023-07-04 12:06 | disposition home or self-care (01) | DRG 546 ==
LOC: ED 16:29 → 3E 20:56 → INTOOBSV 20:56 → 3E 21:58

== ENCOUNTER 2024-02-04 14:47 | Inpatient (IN) ==
[2024-02-04] MEDS ORDERED: VANCOMYCIN CONSULT ACTIVE PRN (15:07)
--- NOTE | 2024-02-04 15:11 | Emergency Department Note ---
Impression & Plan Rash, Skin lesions, Behcet recurrent disease ED Provider Note Provider: Cristiano Alonso MD CHIEF COMPLAINT: Skin ulcerations, mouth ulcers, pain HISTORY OF PRESENT ILLNESS: Patient is a 33-year-old gentleman history of Behcet's disease by report reporting worsening over the last several days with initial flare starting last week. Has been on prednisone and using some try similar on steroid cream to his face and genitals. She is worsening rash in his face with some draining blisters on the hands and feet as well as oral ulcerations on the soft palate making it difficult for him to eat or drink. He states is quite thirsty and his pain is severe. Has taken some ibuprofen at home. Has been taking the ibuprofen. Is scheduled to follow-up with [place] [facility] and [facility]ology locally but has not seen them recently. No clear fevers reported. Very painful significant wounds all over but particularly on the genitals where he says things seem to stick even towels or clothing and then rip off the skin when they come off. Denies diarrhea or nausea or significant abdominal pain. Does report he is been taking Bactrim recently. PAST MEDICAL HISTORY: As noted above MEDICATIONS: Reviewed home medications no longer on Suboxone. Chronically on Trileptal for mood stabilization SOCIAL HISTORY: Smoker PHYSICAL EXAM: GENERAL: alert and oriented groaning laying on the stretcher. Head: normocephalic and atraumatic EYES: No icterus or significant discharge. There is some ulcerations of the skin just lateral to the eyes. NECK: Trachea midline. ENT: Mucous membranes with some scattered ulcerations of the lips and significant erythema with some ulceration of the hard and soft palate. LUNGS: Airway patent. No retractions. Breath sounds clear HEART: Regular rate and rhythm. ABDOMEN: Soft and non-tender, without guarding or rebound. SKIN: Acyanotic, warm with desquamation/bulla to the bilateral hands and feet and some scattered areas of breakdown/crusting ulcerations on the neck right upper arm and significantly throughout the genital and scrotal region diffuse erythema. There are few annular lesions on the left thigh. EXTREMITIES: Without significant swelling. Skin rash as above. NEUROLOGICAL: No focal deficits and moves all extremities. No aphasia. No facial droop or slurred speech. Normal strength and tone in the extremities. Sensation to gross touch normal. PDMP was checked without noted issue. Patient's laboratory studies reviewed. Differential includes Contact dermatitis, viral exanthem, urticaria, allergic reaction, Harris-Zaire syndrome, toxic epidermal necrolysis, erythema multiforme, cellulitis, scabies, HSV, varicella, zoster, eczema, staph scalded skin syndrome, fungal infection, as well as other pathologies. IMPRESSION/MEDICAL DECISION MAKING: Patient with severe skin desquamation and irritation also involving the oral membranes. Reports a history of Behcet's. Has been hospitalized here before for review of prior medical records. Evidently missed outpatient rheumatology follow-up several months ago. He is scheduled for follow-up in [place] for dermatology and rheumatology in the future. Denies significant GI upset at this time. Decreased intake given some IV fluid here. Will cover broadly with antibiotics for any superinfection present here given the large area of desquamated irritated skin on the hands feet and genital region. Basic blood work is sent after ultrasound used to obtain IV access. Given some Dilaudid here for pain. I doubt a deeper abscess formation at this time. Almost question if this could represent an evoling SJS. Bactrim will be stopped and in any event this is a more supportive and wound care issue. Blood work without anemia but leukocytosis. Given the open wounds once again covered broadly with antibiotics. Lactate normal and procalcitonin not elevated lower suspicion for sepsis. ESR not elevated CRP is mildly elevated 1.5. ALT slightly elevated 85 but normal AST and bilirubin. No significant anion gap or hypokalemia or hyperkalemia. Normal renal function but did receive some oral hydration. Did reach out discussed with Dr. Avitia of rheumatology. Certainly the oral and genital ulcerations seem to fit Behcet's picture but the palms and soles are not medically known to be classic for that discussion with him. Will give a IV dose of Solu-Medrol here to try to help with this reaction. Discussed with Dr. Avitia if we may be able to get a skin biopsy completed at some point and discussed with Dr. Cutler of general surgery who stated they could possibly evaluate for this. Certainly given the extent of his skin ulcerations I do not feel he is in a state to go home and discussed with the hospitalist. Patient agreeable. Given some oral lidocaine to help with pain symptoms. Discussed with the hospitalist team who will admit the patient DIAGNOSIS: Skin ulcers, rash, recurrent Bechets disease DISPOSITION: Hospitalist will evaluate Patient was agreeable with this plan. Past Med/Surg History Problem List (Updated 02/04/24 @ 19:48 by Cristiano Alonso M.D.) Rash (Acute) Behcet recurrent disease (Acute) Skin lesions (Acute) Medical History Skin lesion Family History (Updated 02/04/24 @ 18:55 by Murphy Avitia DO) Denies family history of Rheumatoid arthritis Social History Smoking Status: Current every day smoker Tobacco Type: E-cigarettes / Vaping Second Hand Exposure: No; Do You Dip or Chew Tobacco: No; Hx Alcohol Use: No Hx Substance Use: Yes Last Used Substance: Days (ago) Substance Use Type Other:: Marijuana Vape Preferred Language: Ghanaian Communication Ability: Effective Demand Planning Manager Required: No Beliefs That Will Affect Care: None Current Living Situation: Significant Other Feels Safe at Home: Yes Assistive Devices: None Allergies Allergies Allergy/AdvReac Type Severity Reaction Status Date / Time tramadol [From Ultram] Allergy Intermediate HIVES/NAUSE Verified 07/03/23 19:32 A Home Meds Home Medications Medication Instructions Recorded Confirmed buprenorphine 8 mg-naloxone 2 mg 1 film sublingual BID 07/03/23 07/03/23 sublingual film dextroamphetamine-amphetamine 20 20 mg PO BID 07/03/23 07/03/23 mg tablet gabapentin 300 mg capsule 300 mg PO TID 07/03/23 07/03/23 (Neurontin) guanfacine 2 mg tablet 2 mg PO BID 07/03/23 07/03/23 oxcarbazepine 600 mg tablet 600 mg PO BID 07/03/23 07/03/23 Previous Rx's Medication Instructions Recorded colchicine 0.6 mg tablet (Colcrys) 0.6 mg PO BID #60 tabs 07/04/23 dexamethasone 0.5 mg/5 mL oral 0.5 mg (5 mL) PO BID PRN mouth 07/04/23 elixir sores #237 mL oxycodone 10 mg tablet 10 mg PO Q12H #8 tabs 07/04/23 triamcinolone acetonide 0.1 % 0.6 cm dental TID #5 grams 07/04/23 dental paste triamcinolone acetonide 0.1 % 1 applic EXT QID #80 grams 07/04/23 topical cream prednisone 20 mg tablet 20 mg PO BID #15 tabs 01/24/24 Results & Data (ED) Vital Signs Vital Signs - 24 hr 02/04/24 14:55 02/04/24 14:57 02/04/24 15:31 Pulse Rate 93 H 93 H Pulse Rate [Apical] 69 Pulse Rate from SpO2 Sensor Pulse Rhythm [Apical] Regular Pulse Strength [Apical] Normal Respiratory Rate 18 20 Respiratory Effort / Characteristics Non-Labored Spontaneous Non-Labored Spontaneous Respiratory Depth Normal Normal Respiratory Pattern Regular Regular Blood Pressure 154/129 H Blood Pressure [Right Arm] 133/85 Blood Pressure Mean 137 Blood Pressure Mean [Right Arm] 101 Pulse Oximetry 100 98 Oxygen Delivery Method Room Air Room Air Sepsis Recent Fever Within 48 Hours No Sepsis New/Unexplained Change in Mental Status N/A Sepsis Action Taken by Nursing No Action Required 02/04/24 16:39 02/04/24 17:00 Pulse Rate 62 Pulse Rate [Apical] 55 L Pulse Rate from SpO2 Sensor 62 Pulse Rhythm [Apical] Regular Pulse Strength [Apical] Respiratory Rate 14 18 Respiratory Effort / Characteristics Non-Labored Spontaneous Respiratory Depth Normal Respiratory Pattern Regular Blood Pressure 149/98 H Blood Pressure [Right Arm] 148/95 H Blood Pressure Mean 115 Blood Pressure Mean [Right Arm] 112 Pulse Oximetry 99 100 Oxygen Delivery Method Room Air Sepsis Recent Fever Within 48 Hours Sepsis New/Unexplained Change in Mental Status Sepsis Action Taken by Nursing Laboratory Data 02/04/24 15:17 02/04/24 15:17 Lab Results 02/04/24 Range/Units 15:17 WBC 16.19 H (4.8-10.8) K/ul RBC 5.30 (4.70-6.10) M/uL Hgb 15.2 (14.0-18.0) g/dl Hct 44.5 (42.0-52.0) % MCV 84.0 (80.0-100.0) fL MCH 28.7 (25.0-34.0) pg MCHC 34.2 (32.0-36.0) g/dL RDW Std Deviation 40.8 (36.4-46.3) fL RDW Coeff of Lauro 13.2 (11.5-14.5) % Plt Count 408 H (130-400) K/uL MPV 8.4 L (9.4-12.4) fL Immature Gran % (Auto) 0.9 % Neut % (Auto) 82.9 % Lymph % (Auto) 8.8 % [place] % (Auto) 6.9 % Eos % (Auto) 0.3 % Baso % (Auto) 0.2 % Neut # (Auto) 13.44 H (1.40-6.50) K/uL Lymph # (Auto) 1.42 (1.20-3.40) K/uL [place] # (Auto) 1.11 H (0.11-0.59) K/uL Eos # (Auto) 0.05 (0.00-0.50) K/uL Baso # (Auto) 0.03 (0.00-0.20) K/uL Immature Gran # (Auto) 0.14 (0.01-0.20) K/uL ESR 11 (0-15) mm/hr Sodium 137 (136-145) mmol/L Potassium 4.9 (3.5-5.1) mmol/L Chloride 97 L (98-107) mmol/L Carbon Dioxide 34 H (21-32) mmol/L Anion Gap 6 (3-11) BUN 22 (6-23) mg/dl Creatinine 0.86 (0.6-1.4) mg/dl Est Cr Clr Drug Dosing 117.0 ml/min eGFR 115.80 BUN/Creatinine Ratio 25.6 H (10-20) Glucose 109 H (70-99(Fasting)) mg/dl Lactate 1.8 (0.4-2.0) mmol/L Calcium 10.0 (8.6-10.3) mg/dl Magnesium 2.2 (1.7-2.4) mg/dl Total Bilirubin 0.4 (0.2-1.0) mg/dl AST 14 (13-39) U/L ALT 85 H (7-52) U/L Alkaline Phosphatase 95 (34-104) U/L C-Reactive Protein 1.50 H (0-0.5) mg/dl Total Protein 7.5 (6.0-8.3) gm/dl Albumin 4.3 (3.4-5.0) gm/dl Globulin 3.2 (2.5-4.0) gm/dl Albumin/Globulin Ratio 1.3 (0.9-2) Procalcitonin < 0.02 (0-0.5) ng/ml Anaplasma Smear See Comment Babesia Smear See Comment Lyme Disease Screen Negative (Negative) Administered Medications Lidocaine HCl (Lidocaine Viscous 2% 15 Ml Udc) 15 ml MT Q6H PRN PRN Reason: Pain Stop: 02/05/24 16:29 Last Admin: 02/04/24 16:49 Dose: 15 ml Documented By: MR Discontinued Medications Hydromorphone HCl (Hydromorphone Inj 0.5 Mg/0.5 Ml Syr) 0.5 mg IV NOW STA Stop: 02/04/24 15:01 Last Admin: 02/04/24 15:21 Dose: 0.5 mg Documented By: RIGO Hydromorphone HCl (Hydromorphone Inj 0.5 Mg/0.5 Ml Syr) 0.5 mg IV NOW STA Stop: 02/04/24 15:39 Last Admin: 02/04/24 16:09 Dose: 0.5 mg Documented By: RIGO Sodium Chloride (Nss) 1,000 mls @ 999 mls/hr IV .Q1H1M ONE Stop: 02/04/24 16:06 Last Infusion: 02/04/24 17:02 Dose: Infused Documented By: Admin: 02/04/24 15:21 Dose: 999 mls/hr Documented By: RIGO Vancomycin HCl 1,500 mg/ (Sodium Chloride) 530 mls @ 200 mls/hr IV NOW ONE Stop: 02/04/24 17:45 Last Admin: 02/04/24 16:09 Dose: 200 mls/hr Documented By: RIGO Piperacillin Sod/Tazobactam Sod (Zosyn) 4.5 gm in 100 mls @ 200 mls/hr IV NOW ONE; Protocol Stop: 02/04/24 15:36 Last Infusion: 02/04/24 17:02 Dose: Infused Documented By: Admin: 02/04/24 15:24 Dose: 200 mls/hr Documented By: RIGO Methylprednisolone (Methylprednisolone 125 Mg/2 Ml Vial) 125 mg IV NOW STA Stop: 02/04/24 16:18 Last Admin: 02/04/24 16:42 Dose: 125 mg Documented By: MR Discharge Plan Visit Data Chief Complaint: Skin Problem ED Provider: Cristiano Alonso Discharge Problem: Rash, Skin lesions, Behcet recurrent disease Discharge Instructions Interventions: ED Discharge Assessment Last Done: 02/04/24 18:39
[2024-02-04] MEDS: SODIUM CHLORIDE 0.9% 1,000 ML IV ONE (15:21)
[2024-02-04] MEDS: HYDROmorphone INJ 0.5 MG/0.5 ML SYR IV STA ×2 (15:21→16:09)
[2024-02-04] MEDS: PIPERACILLIN/TAZOBACTAM 4.5 GM/100 ML BAG IV ONE (15:24)
[2024-02-04 15:32] LABS: Basophils # (auto) 0.03 K/uL (0.00-0.20); Basophils % (auto) 0.2 %; Eosinophils # (auto) 0.05 K/uL (0.00-0.50); Eosinophils % (auto) 0.3 %; Hematocrit (blood only) 44.5 % (42.0-52.0); Hemoglobin 15.2 g/dl (14.0-18.0); Immature Granulocytes # (auto) 0.14 K/uL (0.01-0.20); Immature Granulocytes % (auto) 0.9 %; Lymphocytes # (auto) 1.42 K/uL (1.20-3.40); Lymphocytes % (auto) 8.8 %; Mean Corpuscular Hemoglobin 28.7 pg (25.0-34.0); Mean Corpuscular Hgb Conc 34.2 g/dL (32.0-36.0); Mean Platelet Volume 8.4 fL (9.4-12.4); Monocytes # (auto) 1.11 K/uL (0.11-0.59); Monocytes % (auto) 6.9 %; Neutrophils # (auto) 13.44 K/uL (1.40-6.50); Neutrophils % (auto) 82.9 %; Platelet Count 408 K/uL (130-400); RDW Coefficient of Variation 13.2 % (11.5-14.5); RDW Standard Deviation 40.8 fL (36.4-46.3); White Blood Count 16.19 K/ul (4.8-10.8)
[2024-02-04 15:48] LABS: Albumin Globulin Ratio 1.3 (0.9-2); Albumin Level 4.3 gm/dl (3.4-5.0); BUN Creatinine Ratio 25.6 (10-20); Bilirubin,Total 0.4 mg/dl (0.2-1.0); C Reactive Protein 1.5 mg/dl (0-0.5); Globulin 3.2 gm/dl (2.5-4.0); Magnesium 2.2 mg/dl (1.7-2.4); Potassium 4.9 mmol/L (3.5-5.1); Total Protein 7.5 gm/dl (6.0-8.3)
[2024-02-04] MEDS: VANCOMYCIN HCL 1,500 MG in SODIUM CHLORIDE 0.9% 500 ML IV ONE (16:09)
[2024-02-04] MEDS: methylPREDNISolone 125 MG/2 ML VIAL IV STA (16:42)
[2024-02-04] MEDS: LIDOCAINE VISCOUS 2% 15 ML UDC MT PRN (16:49)
--- NOTE | 2024-02-04 17:57 | History & Physical Report ---
Date of Service February 04, 2024 Assessment & Plan (1) Behcet recurrent disease: (2) Skin lesions: Plan Possible flareup of Behcet's syndrome Skin lesions, widespread Possible superimposed bacterial infection Patient presents with worsening of his chronic skin lesions plus additional desquamation/skin lesions over hands and feet which is new at this time. Patient received IV steroid, vancomycin and Zosyn in the ED. Follow admitting blood culture. Discussed with rheumatology, rheumatology consult placed, continue with IV steroid, involve dermatology. General surgery consulted for skin biopsy of Mom and sole lesions. Wound care consult. Called dermatology office [[phone]] updated them that I need to speak with dermatology regarding patient's palm and sole lesions, dermatology not available over the weekend, they stated they will reach out on Tuesday. Continue with IV steroid 3 times daily, add pantoprazole IV for now [to p.o. when patient able to swallow more comfortably], continue with vancomycin and Zosyn. Triamcinolone cream - apply thin layer to lesions on skin; Triamcinolone dental paste, please apply to mouth lesions at bedtime Continue with IV fluid with D5W, encourage clear liquid diet as tolerated, plan to slowly advance to soft diet over the next few days with improvement in his lesions. c/w pain Mx Other chronic medical conditions: ADHD, bipolar disorder -- will resume his p.o. medications when he is able to swallow comfortably. DVT prophylaxis: heparin subcu. Full code History of Present Illness Chief Complaint: Worsening skin lesions Primary Care Provider: NO PCP 33-year-old male with PMH of stomatitis, mucositis, ADHD without hyperactivity, bipolar 1 disorder, depression, Behcet's syndrome presents with worsening skin lesions. He reports worsening mouth and genitalia skin lesions since about 7 to 9 days, he has sudden outbreak of palm and sole lesions since about 1 to 2 days. He reports lesions worsening. He reports not being able to eat due to mouth lesions since about 2 to 3 days. The lesions are painful and itchy. Patient denies trauma or fall. Patient denies fever/sore throat/cough/chest pain/palpitation/pain or burning while passing urine. Patient has moved last bowel around 2 to 3 days ago, is moving gas, denies abdominal pain. Patient reports he had an episode of Behcet's syndrome flare in 2020 and then he had about 2 more flares in the last 6 months. This is his third flare in the last 6 months per patient. Patient has not followed up with his outpatient rheumatology and dermatology, rather he is going to acute care for steroid prescriptions during flareups. This time he has been on prednisone taper for about 2 to 3 days prior to arrival. ED physician discussed with rheumatology for recommendation, plan is to continue with IV steroid. Also they discussed with general surgery for skin biopsy. Medications were reviewed with the patient at bedside: Patient does not take Suboxone/colchicine/oxycodone. He reports he takes Adderall 40 mg in the morning and 20 mg in the noon, gabapentin 300 mg 3 times a day, guanfacine 2 mg twice a day, oxcarbazepine 600 mg twice a day. Patient reports he vapes nicotine, denies alcohol and recreational drug use. Full code as per my discussion with the patient. Plan of care discussed with the patient in detail. Allergies Allergy/AdvReac Type Severity Reaction Status Date / Time tramadol [From Ultra] Allergy Intermediate HIVES/NAUSE Verified 07/03/23 19:32 A Home Medications Medication Instructions Recorded Confirmed Type buprenorphine 8 mg-naloxone 2 mg 1 film sublingual BID 07/03/23 07/03/23 History sublingual film dextroamphetamine-amphetamine 20 20 mg PO BID 07/03/23 07/03/23 History mg tablet gabapentin 300 mg capsule 300 mg PO TID 07/03/23 07/03/23 History (Neurontin) guanfacine 2 mg tablet 2 mg PO BID 07/03/23 07/03/23 History oxcarbazepine 600 mg tablet 600 mg PO BID 07/03/23 07/03/23 History colchicine 0.6 mg tablet (Colcrys) 0.6 mg PO BID #60 tabs 07/04/23 Rx dexamethasone 0.5 mg/5 mL oral 0.5 mg (5 mL) PO BID PRN mouth 07/04/23 Rx elixir sores #237 mL oxycodone 10 mg tablet 10 mg PO Q12H #8 tabs 07/04/23 Rx triamcinolone acetonide 0.1 % 0.6 cm dental TID #5 grams 07/04/23 Rx dental paste triamcinolone acetonide 0.1 % 1 applic EXT QID #80 grams 07/04/23 Rx topical cream prednisone 20 mg tablet 20 mg PO BID #15 tabs 01/24/24 Rx Past Med/Surg History Problem List (Updated 01/24/24 @ 15:36 by Donavon Patino DO) Rash (Acute) Behcet recurrent disease Skin lesions (Acute) Medical History (Updated 01/24/24 @ 15:36 by Donavon Patino DO) Skin lesion Social History Smoking Status: Current every day smoker Tobacco Type: E-cigarettes / Vaping Second Hand Exposure: No; Do You Dip or Chew Tobacco: No; Hx Alcohol Use: No Hx Substance Use: Yes Last Used Substance: Days (ago) Substance Use Type Other:: Marijuana Vape Preferred Language: Albanian Communication Ability: Effective Environmental Construction Engineer Required: No Beliefs That Will Affect Care: None Current Living Situation: Significant Other Feels Safe at Home: Yes Assistive Devices: None Review of Systems Review of Systems: Negative otherwise mentioned in HPI. Physical Exam Physical Exam: GENERAL: Alert and oriented x3. mild distress due to painful lesions, on RA. HEENT: No pallor, no icterus. Pupils equal, round and reactive to light. Oral mucosa w/ ulcerations of lips, erythema and ulcerations of hard and soft palate. NECK: No JVD, no neck masses. HEART: S1 and S2 heard. Regular rate and rhythm. No murmur, no gallop. RESPIRATORY SYSTEM: Normal AP diameter. No accessory muscle use. No wheezing, no crackles. ABDOMEN: Soft, bowel sounds present, nontender, no distention. CENTRAL NERVOUS SYSTEM: No facial droop. Speech is clear. Obeys simple commands. Moves extremities. EXTREMITIES: No edema, no erythema seen. Skin: Discrimination and blisters in bilateral hands and feet. Skin lesions with erythema involving genitalia extensively including scrotal region, back of left thigh. Lesions are painful. No purulence noted. Results & Data Results & Data Vital Signs (Past 12 Hours) Vital Signs Pulse Pulse Resp BP BP Pulse Ox O2 Del Method 02/04/24 17:00 55 L 18 148/95 H 100 Room Air 02/04/24 16:39 62 14 149/98 H 99 02/04/24 15:31 69 20 133/85 98 Room Air 02/04/24 14:57 93 H 02/04/24 14:55 93 H 18 154/129 H 100 Room Air
--- NOTE | 2024-02-04 18:48 | Rheumatology Consultation ---
Rheumatology Consultation DOS February 04, [address] Reina Attending Physician Dr. Reina Reason for Consultation Worsening skin rash Assessment & Plan (1) Skin lesions: These skin changes are not consistent with Behcet's as he has significant mucocutaneous changes and bullous disease which is not consistent with Behcet's. Oral and genital ulcerations are common with Behcet's but in this case, the mucocutaneous changes are much more advanced than a more well-defined ulcerative change typically seen with Behcet's. In addition, he has extension of skin changes to the skin of his inner thighs as well as lower abdomen and even involvement of areola. I recommend evaluation to determine etiology of bullous disease as well as the pronounced mucocutaneous changes involving mouth and covering his genitals and inner thighs/groin regions as these changes are not consistent with Behcet's Query significant fungal infection causing an id reaction versus other infection versus dyshidrotic pemphigoid versus other. I was unable to locate any [facility] rheumatology notes dating back to 2012 History of Present Illness Attending Physician: Anabel Reina MD History of Present Illness This patient is a 33-year-old gentleman who was in his usual state health until approximately 9 days ago when he began developing skin changes in his mouth and rash on his genitals. 2 to 3 days ago symptoms escalated and he began developing bubbles on his hands and feet. He has had difficulty eating for the past 3 days. He has had involvement of lips, eyes, and nose. He has also had involvement of his nipples with skin coming off the right. He denies antecedent new medications, illness, or drug use. He reports that skin is coming off the roof of his mouth. He presented to ER on 01/23 and was given course of steroids but skin lesions escalated despite the use of steroids. 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 Allergies Allergy/AdvReac Type Severity Reaction Status Date / Time tramadol [From Ultram] Allergy Intermediate HIVES/NAUSE Verified 07/03/23 19:32 A Home Medications Medication Instructions Recorded Confirmed Type buprenorphine 8 mg-naloxone 2 mg 1 film sublingual BID 07/03/23 07/03/23 History sublingual film dextroamphetamine-amphetamine 20 20 mg PO BID 07/03/23 07/03/23 History mg tablet gabapentin 300 mg capsule 300 mg PO TID 07/03/23 07/03/23 History (Neurontin) guanfacine 2 mg tablet 2 mg PO BID 07/03/23 07/03/23 History oxcarbazepine 600 mg tablet 600 mg PO BID 07/03/23 07/03/23 History colchicine 0.6 mg tablet (Colcrys) 0.6 mg PO BID #60 tabs 07/04/23 Rx dexamethasone 0.5 mg/5 mL oral 0.5 mg (5 mL) PO BID PRN mouth 07/04/23 Rx elixir sores #237 mL oxycodone 10 mg tablet 10 mg PO Q12H #8 tabs 07/04/23 Rx triamcinolone acetonide 0.1 % 0.6 cm dental TID #5 grams 07/04/23 Rx dental paste triamcinolone acetonide 0.1 % 1 applic EXT QID #80 grams 07/04/23 Rx topical cream prednisone 20 mg tablet 20 mg PO BID #15 tabs 01/24/24 Rx Patient History Medical History Skin lesion Family History (Updated 02/04/24 @ 18:55 by Murphy Avitia DO) Denies family history of Rheumatoid arthritis Social History Smoking Status: Current every day smoker Tobacco Type: E-cigarettes / Vaping Second Hand Exposure: No; Do You Dip or Chew Tobacco: No; Hx Alcohol Use: No Hx Substance Use: Yes Last Used Substance: Days (ago) Substance Use Type Other:: Marijuana Vape Preferred Language: Portuguese Communication Ability: Effective Trombone Slide Assembler Required: No Beliefs That Will Affect Care: None Current Living Situation: Significant Other Feels Safe at Home: Yes Assistive Devices: None Review of Systems Review of Systems: Denies fevers or chills. Denies chest pain or shortness of breath. Denies nausea or vomiting. Positive constipation. Denies dark or black stools. He has not been able to eat much in the past 3 days secondary to pain in his mouth and lips. Physical Exam Physical Exam: General: Appears uncomfortable secondary to discomfort with lips and mouth Eyes: No obvious scleritis. There is slight rash, skin change lateral to left eye Mouth: Lips with swelling and desquamation of skin. Able to see roof of mouth with some sloughing of skin noted. Do not see an obvious ulcer on portion of tongue visible but patient unable to fully open the mouth secondary to pain Cardiovascular: Heart regular Pulmonary: Clear to auscultation Abdomen: Soft, nontender, positive bowel sounds Skin: Erythematous with potentially desquamation of skin genital area including penis with extension into medial thighs and groin folds. Bullous lesions plantar aspect of feet and palms of hand with extension/involvement of fingers. Do not identify a discrete ulcer at the scrotum or penis although difficult to fully examine secondary to amount of skin change and pain. Appearance of skin sloughing at right areola with left areola appearing somewhat swollen. There is a flat, patch like area lower anterior abdomen which is tender to palpation without any evidence of bullous change Musculoskeletal: No obvious synovitis. No knee effusions Results & Data Vital Signs (Past 12 Hours) Vital Signs Pulse Pulse Resp BP BP Pulse Ox O2 Del Method 02/04/24 18:44 65 16 99 Room Air 02/04/24 17:00 55 L 18 148/95 H 100 Room Air 02/04/24 16:39 62 14 149/98 H 99 02/04/24 15:31 69 20 133/85 98 Room Air 02/04/24 14:57 93 H 02/04/24 14:55 93 H 18 154/129 H 100 Room Air Results CMP Results: Sodium 137 mmol/L (136-145) 02/04/24 Potassium 4.9 mmol/L (3.5-5.1) 02/04/24 Chloride 97 mmol/L (98-107) L 02/04/24 Carbon Dioxide 34 mmol/L (21-32) H 02/04/24 Anion Gap 6 (3-11) 02/04/24 BUN 22 mg/dl (6-23) 02/04/24 Creatinine 0.86 mg/dl (0.6-1.4) 02/04/24 eGFR 115.80 02/04/24 Est GFR ( Amer) 135.1 ml/min 07/04/23 Est GFR (Non-Af Amer) 116.6 ml/min 07/04/23 BUN/Creatinine Ratio 25.6 (10-20) H 02/04/24 Glucose 109 mg/dl (70-99(Fasting)) H 02/04/24 Calcium 10.0 mg/dl (8.6-10.3) 02/04/24 Total Bilirubin 0.4 mg/dl (0.2-1.0) 02/04/24 AST 14 U/L (13-39) 02/04/24 ALT 85 U/L (7-52) H 02/04/24 Alkaline Phosphatase 95 U/L (34-104) 02/04/24 Total Protein 7.5 gm/dl (6.0-8.3) 02/04/24 Albumin 4.3 gm/dl (3.4-5.0) 02/04/24 Globulin 3.2 gm/dl (2.5-4.0) 02/04/24 Albumin/Globulin Ratio 1.3 (0.9-2) 02/04/24 Results Rheum Results - ESR: ESR 11 mm/hr (0-15) 02/04/24 15:17 Results Rheum Results - CRP: CRP 1.50 mg/dl (0-0.5) H 02/04/24 15:17 Results CBC w Diff Results: RBC 5.30 M/uL (4.70-6.10) 02/04/24 WBC 16.19 K/ul (4.8-10.8) H 02/04/24 Hgb 15.2 g/dl (14.0-18.0) 02/04/24 Hct 44.5 % (42.0-52.0) 02/04/24 MCV 84.0 fL (80.0-100.0) 02/04/24 MCH 28.7 pg (25.0-34.0) 02/04/24 MCHC 34.2 g/dL (32.0-36.0) 02/04/24 RDW Standard Deviation 40.8 fL (36.4-46.3) 02/04/24 RDW Coefficient of Variation 13.2 % (11.5-14.5) 02/04/24 Plt Count 408 K/uL (130-400) H 02/04/24 MPV 8.4 fL (9.4-12.4) L 02/04/24 Neutrophils (%) (Auto) 82.9 % 02/04/24 Lymphocytes (%) (Auto) 8.8 % 02/04/24 Monocytes # (Auto) 1.11 K/uL (0.11-0.59) H 02/04/24 Eosinophils # (Auto) 0.05 K/uL (0.00-0.50) 02/04/24 Immature Granulocyte % (Auto) 0.9 % 02/04/24 Neutrophils # (Auto) 13.44 K/uL (1.40-6.50) H 02/04/24 Lymphocytes # (Auto) 1.42 K/uL (1.20-3.40) 02/04/24 Monocytes # (Auto) 1.11 K/uL (0.11-0.59) H 02/04/24 Eosinophils # (Auto) 0.05 K/uL (0.00-0.50) 02/04/24 Basophils # (Auto) 0.03 K/uL (0.00-0.20) 02/04/24 Immature Granulocyte # (Auto) 0.14 K/uL (0.01-0.20) 4 PG Care Time/CCT Total # of Minutes Spent Total Time Spent with Patient: Total time spent is greater than 50% in coordination of care (as documented) at patient's floor/unit and/or counseling patient: Coding Level of Care Code 78663 OFFICE CONSULT LVL Diagnoses Skin lesions L98.9
[2024-02-04] MEDS ORDERED: methylPREDNISolone 125 MG/2 ML VIAL IV SCH (19:00)
[2024-02-04] MEDS: D5W AND NSS 1,000 ML IV SCH (20:46)
[2024-02-04] MEDS: HYDROmorphone INJ 1 MG/ML SYRINGE IV PRN (21:44)
[2024-02-04] MEDS: PIPERACILLIN/TAZOBACTAM 4.5 GM/100 ML BAG IV SCH (21:48)
[2024-02-04] MEDS: HEPARIN SOD 5,000 UNIT/0.5 ML VIAL SQ SCH (21:53)
[2024-02-04] MEDS: TRIAMCINOLONE ACET 0.1% ORABASE 5 GM TUBE MT SCH (21:53)
[2024-02-04] MEDS: TRIAMCINOLONE ACET 0.1% CR 80 GM TUBE EXT SCH (21:53)
[2024-02-05] MEDS: methylPREDNISolone 40 MG in SYRINGE 0 ML IV SCH (01:23)
[2024-02-05] MEDS: FIRST - Mouthwash BLM 5 ML UDP PO PRN (02:15)
[2024-02-05] MEDS: VANCOMYCIN HCL 1,500 MG in SODIUM CHLORIDE 0.9% 500 ML IV SCH (02:49)
[2024-02-05 09:33] LABS: Hematocrit (blood only) 41.5 % (42.0-52.0); Hemoglobin 14.3 g/dl (14.0-18.0); Mean Corpuscular Hemoglobin 28.8 pg (25.0-34.0); Mean Corpuscular Hgb Conc 34.5 g/dL (32.0-36.0); Mean Corpuscular Volume 83.7 fL (80.0-100.0); Mean Platelet Volume 8.6 fL (9.4-12.4); Platelet Count 370 K/uL (130-400); RDW Coefficient of Variation 13.2 % (11.5-14.5); RDW Standard Deviation 40.7 fL (36.4-46.3); Red Blood Count 4.96 M/uL (4.70-6.10); White Blood Count 18.42 K/ul (4.8-10.8)
--- NOTE | 2024-02-05 09:34 | Pharmacy Report ---
Pharmacy PK ABX Note - Date of Service February 05, 2024 - Assessment and Plan Assessment * 33 year old M receiving pip/tazo and vancomycin for treatment of possible flare-up of Behcet's syndrome w possible superimposed bacterial infection. Widespread skin lesions with additional desquamation/skin lesions over hands and feet noted. * Pertinent microbiologic data includes: blood culture pending Plan Vancomycin * Loading dose: 1500 mg IV x 1 * Maintenance dose: 1500 mg IV every 12 hours * Regimen is predicted to achieve target AUC/JULIEN of 400-600 mg/L.hr * Random level ordered for 12/30 AM Pharmacy will continue to follow and will adjust dose/frequency as necessary. Thank you. Pharmacy has transitioned to AUC monitoring for vancomycin. AUC/JULIEN is the preferred PK/PD target and is associated with decreased risk of nephrotoxicity compared to traditional trough targets.
[2024-02-05 09:49] LABS: Calcium 9.1 mg/dl (8.6-10.3); Creatinine Clr Calc Pharmacy 157.1 ml/min; Potassium 4.1 mmol/L (3.5-5.1)
[2024-02-05] MEDS: PANTOprazole 40 MG/10 ML SYR IV SCH (10:02)
--- NOTE | 2024-02-05 10:36 | Surgery Consultation ---
Date of Consultation February 05, 2024 Assessment & Plan (1) Behcet recurrent disease: (2) Skin lesions: Plan 33-year-old gentleman with new onset of skin lesions and known history of Behcet's disease. On steroids. We will await for dermatology recommendations on Tuesday. He may require skin biopsy. We will follow. History of Present Illness Reason for Consultation: Skin lesions Requesting Physician: Anabel Reina MD Attending Physician: Anabel Reina MD History of Present Illness 33-year-old male with PMH of stomatitis, mucositis, ADHD without hyperactivity, bipolar 1 disorder, depression, Behcet's syndrome presents with worsening skin lesions. He reports worsening mouth and genitalia skin lesions since about 7 to 9 days, he has sudden outbreak of palm and sole lesions since about 1 to 2 days. He reports lesions worsening. He reports not being able to eat due to mouth lesions since about 2 to 3 days. The lesions are painful and itchy. Patient denies trauma or fall. Patient denies fever/sore throat/cough/chest pain/palpitation/pain. there is no dermatology coverage until Tuesday. Rheumatology recommended steroids and possible skin biopsy. Allergies Allergy/AdvReac Type Severity Reaction Status Date / Time tramadol [From Ultram] Allergy Intermediate HIVES/NAUSE Verified 07/03/23 19:32 A Home Medications Medication Instructions Recorded Confirmed Type buprenorphine 8 mg-naloxone 2 mg 1 film sublingual BID 07/03/23 07/03/23 History sublingual film dextroamphetamine-amphetamine 20 20 mg PO BID 07/03/23 07/03/23 History mg tablet gabapentin 300 mg capsule 300 mg PO TID 07/03/23 07/03/23 History (Neurontin) guanfacine 2 mg tablet 2 mg PO BID 07/03/23 07/03/23 History oxcarbazepine 600 mg tablet 600 mg PO BID 07/03/23 07/03/23 History colchicine 0.6 mg tablet (Colcrys) 0.6 mg PO BID #60 tabs 07/04/23 Rx dexamethasone 0.5 mg/5 mL oral 0.5 mg (5 mL) PO BID PRN mouth 07/04/23 Rx elixir sores #237 mL oxycodone 10 mg tablet 10 mg PO Q12H #8 tabs 07/04/23 Rx triamcinolone acetonide 0.1 % 0.6 cm dental TID #5 grams 07/04/23 Rx dental paste triamcinolone acetonide 0.1 % 1 applic EXT QID #80 grams 07/04/23 Rx topical cream prednisone 20 mg tablet 20 mg PO BID #15 tabs 01/24/24 Rx Patient History Medical History Skin lesion Family History Denies family history of Rheumatoid arthritis Social History Smoking Status: Current every day smoker Tobacco Type: E-cigarettes / Vaping Second Hand Exposure: No; Do You Dip or Chew Tobacco: No; Hx Alcohol Use: No Hx Substance Use: Yes Last Used Substance: Days (ago) Substance Use Type Other:: Marijuana Vape Preferred Language: Uzbek Communication Ability: Effective Supervisor Shuttle Veneering Required: No Beliefs That Will Affect Care: None Current Living Situation: Significant Other Feels Safe at Home: Yes Assistive Devices: None Review of Systems Review of Systems: All systems reviewed & are unremarkable except as noted in HPI & below Physical Exam Constitutional: WD/WN, vitals as above Eyes: PERRL, conjunctivae normal, anicteric sclerae Neck: trachea midline, no thyromegaly Respiratory: normal respiratory effort; no respiratory distress and no labored breathing Cardiovascular: Rate/Rhythm: regular rate and regular rhythm Gastrointestinal (Abdomen): Inspection/Auscultation: abdomen normal to inspection; abdomen not distended Musculoskeletal: Skin lesions diffusely, including palms of hands, soles of feet, mucosal lesions in the mouth Psychiatric: A+Ox3, euthymic affect Results & Data Vital Signs (Past 12 Hours) Vital Signs Temp Pulse Pulse Resp BP Pulse Ox O2 Del Method 02/05/24 09:18 80 02/05/24 08:04 36.7 C 56 L 16 150/84 H 100 Room Air 02/05/24 03:05 36.8 C 53 L 18 150/84 H 100 Room Air 02/05/24 00:44 36.7 C 55 L 14 156/92 H 100 Room Air 02/04/24 23:00 67 02/04/24 22:52 162/83 H Laboratory Results 02/05/24 02/04/24 02/04/24 Range/Units 09:01 19:11 15:17 WBC 18.42 H 16.19 H (4.8-10.8) K/ul RBC 4.96 5.30 (4.70-6.10) M/uL Hgb 14.3 15.2 (14.0-18.0) g/dl Hct 41.5 L 44.5 (42.0-52.0) % MCV 83.7 84.0 (80.0-100.0) fL MCH 28.8 28.7 (25.0-34.0) pg MCHC 34.5 34.2 (32.0-36.0) g/dL RDW Std Deviation 40.7 40.8 (36.4-46.3) fL RDW Coeff of Lauro 13.2 13.2 (11.5-14.5) % Plt Count 370 408 H (130-400) K/uL MPV 8.6 L 8.4 L (9.4-12.4) fL Immature Gran % (Auto) 0.9 % Neut % (Auto) 82.9 % Lymph % (Auto) 8.8 % [place] % (Auto) 6.9 % Eos % (Auto) 0.3 % Baso % (Auto) 0.2 % Neut # (Auto) 13.44 H (1.40-6.50) K/uL Lymph # (Auto) 1.42 (1.20-3.40) K/uL [place] # (Auto) 1.11 H (0.11-0.59) K/uL Eos # (Auto) 0.05 (0.00-0.50) K/uL Baso # (Auto) 0.03 (0.00-0.20) K/uL Immature Gran # (Auto) 0.14 (0.01-0.20) K/uL ESR 11 (0-15) mm/hr Sodium 135 L 137 (136-145) mmol/L Potassium 4.1 4.9 (3.5-5.1) mmol/L Chloride 99 97 L (98-107) mmol/L Carbon Dioxide 27 34 H (21-32) mmol/L Anion Gap 9 6 (3-11) BUN 18 22 (6-23) mg/dl Creatinine 0.62 0.86 (0.6-1.4) mg/dl Est Cr Clr Drug Dosing 157.1 117.0 ml/min eGFR 127.83 115.80 BUN/Creatinine Ratio 29.0 H 25.6 H (10-20) Glucose 162 H 109 H (70-99(Fasting)) mg/dl Lactate 1.8 (0.4-2.0) mmol/L Calcium 9.1 10.0 (8.6-10.3) mg/dl Phosphorus 4.0 (2.5-4.9) mg/dl Magnesium 2.0 2.2 (1.7-2.4) mg/dl Total Bilirubin 0.4 (0.2-1.0) mg/dl AST 14 (13-39) U/L ALT 85 H (7-52) U/L Alkaline Phosphatase 95 (34-104) U/L C-Reactive Protein 1.50 H (0-0.5) mg/dl Total Protein 7.5 (6.0-8.3) gm/dl Albumin 4.3 (3.4-5.0) gm/dl Globulin 3.2 (2.5-4.0) gm/dl Albumin/Globulin Ratio 1.3 (0.9-2) Procalcitonin < 0.02 (0-0.5) ng/ml Anaplasma Smear See Comment A. phagocytophilum DNA Pending Babesia Smear See Comment Babesia microti DNA PCR Pending Lyme Disease Screen Negative (Negative) Ehrlichia DNA (PCR) Pending Q Fever Phase I IgG Ab Pending Q Fever Phase I IgM Ab Pending Q Fever Phase II IgG Ab Pending Q Fever Phase II IgM Ab Pending Rickettsia IgG Ab Pending Rickettsia IgM Ab Pending Typhus Fever IgG Ab Pending Typhus Fever IgM Ab Pending
--- NOTE | 2024-02-05 14:09 | Hospitalist Progress Note ---
Date of Service February 05, 2024 Assessment & Plan (1) Behcet recurrent disease: (2) Skin lesions: Plan Important note from prior presentation: Chart review 02/05/24: Pt's inpatient dermatology note at [facility] from 05/22/2013 was reviewed on 02/05/24: he presented w/ 1 day h/o painful ulcers in his mouth, scrotum and sanjeev-anally; couldn't pinpoint inciting etiology. He was supposed to f/u dermatology as OP prior to this for ulcer noted in October of 2012 clinic visit (biopsied which showed ulcer and HSV was neg) but didn't. he was incarcerated at the time through the winter and he did not have this lesion while in long-term. He started getting this lesion again 3 to 4 weeks after getting out of long-term at which point he presented to the [facility] at above date. Because of this, the likelihood of either medication or illicit drug use was high in the differential at the time. It appears that he did not follow-up for further dermatology follow-up after this admission as well. His rheumatology follow-up after this admission was also no-show. And then he has multiple cancellation of his rheumatology and dermatology follow-up after that. He was treated at the time in the line of aphthous ulcer with allergic contact dermatitis versus cutaneous Crohn's versus streptococcal infection versus skin manifestation of illicit drug use versus other infectious etiology. He is being managed for the following: Possible flareup of Behcet's syndrome Skin lesions, widespread Possible superimposed bacterial infection Patient presents with worsening of his chronic skin lesions plus additional desquamation/skin lesions over hands and feet which is new at this time. Patient received IV steroid, vancomycin and Zosyn in the ED. Follow admitting blood culture. Discussed with rheumatology 02/03, rheumatology consult placed, continue with IV steroid, involve dermatology. General surgery consulted for skin biopsy of palm and sole lesions. Wound care consult. Called dermatology office [[phone]] 02/03 updated them that I need to speak with dermatology regarding patient's palm and sole lesions, dermatology not available over the weekend, they stated they will reach out on Tuesday. Called dermatology at [facility] 02/04 for guidance until [facility] derm can be reached, they stated they don't cover [place]. Continue with IV steroid 3 times daily, c/w pantoprazole IV for now [to p.o. when patient able to swallow more comfortably], continue with vancomycin and Zosyn. Triamcinolone cream - apply thin layer to lesions on skin; Triamcinolone dental paste, please apply to mouth lesions at bedtime Continue with IV fluid with D5W, encourage clear liquid diet as tolerated, plan to slowly advance to soft diet over the next few days with improvement in his l esions. c/w pain Mx Substance use disorder: vape noted 02/04 at bedside. h/o substance use disorder. Vape taken by security. will get urine tox. Other chronic medical conditions: ADHD, bipolar disorder -- will resume his p.o. medications when he is able to swallow comfortably. DVT prophylaxis: heparin subcu. Full code Since pt declined my care, will present this case to my team members tomorrow as per policy to take over as he prefers different physician in his case. Admission and Anticipated Discharge Date Admission Date: February 04, 2024 Subjective Patient was seen and examined at bedside. Patient was lying in bed, on room air, resting. Patient reports overall pain is slightly better, his rashes looks slightly better. Patient was not able to eat or drink anything for 2 to 3 days before arrival, now he states that he is able to drink some. Patient denies any fever or sore throat or cough. During my bedside exam, I noticed vaping device, patient immediately got agitated. He started saying that he has not vaped anything in the hospital. I spoke with nursing and nursing supervisor blood, per hospital policy the device needs to be taken away/will be returned back to him at the time of discharge. Because patient was very much agitated, security was called who took the vaping device from him. I received [place] text from nursing that patient would like to see a different doctor. Physical Exam Physical Exam: GENERAL: Alert and oriented x3. NAD, on RA. HEENT: No pallor, no icterus. Pupils equal, round and reactive to light. Oral mucosa w/ ulcerations of lips, erythema and ulcerations of hard and soft palate --> stable/minimally improved NECK: No JVD, no neck masses. HEART: S1 and S2 heard. Regular rate and rhythm. No murmur, no gallop. RESPIRATORY SYSTEM: Normal AP diameter. No accessory muscle use. No wheezing, no crackles. ABDOMEN: Soft, bowel sounds present, nontender, no distention. CENTRAL NERVOUS SYSTEM: No facial droop. Speech is clear. Obeys simple commands. Moves extremities. EXTREMITIES: No edema, no erythema seen. Skin: desquamation and blisters in bilateral hands and feet. Skin lesions with erythema involving genitalia extensively including scrotal region, back of left thigh. Lesions are painful. No purulence noted. --> lesion seems to have stabilized/some improved. Results & Data Results & Data Vital Signs (Past 12 Hours) Vital Signs Temp Pulse Pulse Resp BP Pulse Ox O2 Del Method 02/05/24 11:35 36.5 C 70 16 147/91 H 100 Room Air 02/05/24 09:18 80 02/05/24 08:04 36.7 C 56 L 16 150/84 H 100 Room Air 02/05/24 03:05 36.8 C 53 L 18 150/84 H 100 Room Air
[2024-02-05] MEDS ORDERED: Nursing to Pharmacy Communication SCH (14:45)
[2024-02-05 15:42] LABS: Amphetamines+Metham, Urine Pos (Neg); Barbiturates, Urine Neg (Neg); Benzodiazepine, Urine Neg (Neg); Cocaine, Urine Neg (Neg); Fentanyl, Urine Neg (Neg); MDMA (Ecstacy), Urine Neg (Neg); Marijuana, Urine Pos (Neg); Methadone, Urine Neg (Neg); Opiate, Urine Pos (Neg); Phencyclidine, Urine Neg (Neg)
[2024-02-05] MEDS: DEXTROAMPHETAMINE/AMPHETAMINE IR 20 MG TAB PO ONE (17:54)
[2024-02-05] MEDS: guanFACINE HCL 1 MG TAB PO SCH (20:32)
[2024-02-05] MEDS: GABAPENTIN 300 MG CAP PO SCH (20:32)
[2024-02-05] MEDS: OXcarbazepine 150 MG TABLET PO SCH (20:33)
[2024-02-05] MEDS: PANTOprazole 40 MG TAB PO SCH (20:34)
[2024-02-05] MEDS: ACETAMINOPHEN SUSP 325 MG/10.15 ML UDC PO PRN (22:49)
[2024-02-06] MEDS: KETOROLAC TROMETHAMINE 15 MG/ML VIAL IV PRN (05:23)
--- NOTE | 2024-02-06 08:59 | Pharmacy Report ---
Pharmacy PK ABX Note - Date of Service February 06, 2024 - Assessment and Plan Assessment 02/05: * Overnight dose given late, cancelled level for today. Current regimen predicted to be therapeutic at this time with low probability (59% chance of achieving target AUC/JULIEN), will change regimen to vancomycin 1250mg Q8H for better probability of therapeutic attainment (79% chance). Blood cultures no growth x24 hours. 02/04: * 33 year old M receiving pip/tazo and vancomycin for treatment of possible flare-up of Behcet's syndrome w possible superimposed bacterial infection. Widespread skin lesions with additional desquamation/skin lesions over hands and feet noted. * Pertinent microbiologic data includes: blood culture pending Plan Vancomycin * Loading dose: 1500 mg IV x 1 * Maintenance dose: 1250mg IV q8H * Regimen is predicted to achieve target AUC/JULIEN of 400-600 mg/L.hr * Random level ordered for 02/06 @ 0530 Pharmacy will continue to follow and will adjust dose/frequency as necessary. Thank you. Pharmacy has transitioned to AUC monitoring for vancomycin. AUC/JULIEN is the preferred PK/PD target and is associated with decreased risk of nephrotoxicity compared to traditional trough targets.
[2024-02-06] MEDS ORDERED: DEXTROAMPHETAMINE/AMPHETAMINE IR 20 MG TAB PO SCH ×2 (09:00)
[2024-02-06] MEDS: DEXTROAMPHETAMINE/AMPHETAMINE IR 20 MG TAB PO SCH ×2 (09:10→13:04)
[2024-02-06] MEDS: NICOTINE 21 MG/24 HR TDSY TD SCH (12:44)
[2024-02-06 13:09] LABS: BUN Creatinine Ratio 31.1 (10-20); Calcium 8.9 mg/dl (8.6-10.3); Creatinine Clr Calc Pharmacy 157.8 ml/min; Phosphorus 2.9 mg/dl (2.5-4.9)
[2024-02-06 13:10] LABS: Hematocrit (blood only) 40.9 % (42.0-52.0); Hemoglobin 14.1 g/dl (14.0-18.0); Mean Corpuscular Hgb Conc 34.5 g/dL (32.0-36.0); Mean Platelet Volume 8.8 fL (9.4-12.4); Platelet Count 367 K/uL (130-400); RDW Standard Deviation 40.1 fL (36.4-46.3); Red Blood Count 4.87 M/uL (4.70-6.10); White Blood Count 24.77 K/ul (4.8-10.8)
[2024-02-06] MEDS: VANCOMYCIN HCL 1,250 MG in SODIUM CHLORIDE 0.9% 250 ML IV SCH (13:44)
--- NOTE | 2024-02-06 14:13 | Hospitalist Progress Note ---
Date of Service February 06, 2024 Assessment & Plan (1) Behcet recurrent disease: (2) Ulceration, oral mucosa: (3) Ulcers of genital organ in male: (4) Nicotine dependence: (5) ADHD (attention deficit hyperactivity disorder): Plan Patient with extremely painful oral and genital lesions. Seem to be slightly improving based on review of previous pictures Oral lesions less painful, patient tolerating diet, advance to soft diet Transition to oral steroids Transition to oral pain medications Increase Neurontin Transition to MedSurg unit Discontinue vancomycin MRSA screen negative, continue Zosyn Approximate 10 years ago patient tested negative for HSV when he had a similar outbreak, however lesions certainly could be herpes. Will start Valtrex empirically I believe benefits outweigh risks Consult infectious disease, reviewing rheumatology note lesions not consistent with Behcet rash. Check HSV, wound culture, GC chlamydia testing Called dermatology clinic, the tent finisher not available until next week Offered patient to investigate possible transfer to [facility] where dermatology would be available, he declined and would prefer to be treated here Communication surgical team to update them on the unavailability of dermatology, and to consider proceeding with biopsy Offered patient nicotine patch, he finally is agreeable and accepts Blunt communication with the patient that derogatory/racial slurs is not acceptable. Patient expressed remorse and understands the requirement of respectful communication Admission and Anticipated Discharge Date Admission Date: February 04, 2024 Subjective Patient extremely irritated about not being able to have his vape. An extreme amount of pain with his genital ulcerations. Patient requested advancing of his diet and tolerated Physical Exam Physical Exam: Constitutional: Alert, moderate distress to pain HEENT: Oral lesions seem to be crusting over and somewhat improved Lungs: Clear to auscultation, decreased, no wheezes rales or rhonchi CV: S1-S2, regular Abdomen: Soft, nontender, nondistended Genitalia: Erythematous, purulent, ulcerative lesions across entire inguinal area scrotum and penis, extremely tender Derm: Healing lesions in upper extremities Extremities: No significant edema Neuro: No focal deficits Psych: Cooperative, normal mood Results & Data Results & Data Vital Signs (Past 12 Hours) Vital Signs Temp Pulse Pulse Resp BP Pulse Ox O2 Del Method 02/06/24 12:44 36.9 C 72 18 148/87 H 100 Room Air 02/06/24 08:20 55 L 02/06/24 08:06 36.6 C 64 18 159/77 H 100 Room Air 02/06/24 03:11 36.5 C 59 L 16 137/74 99 Room Air Laboratory Results [employer] MRSA screen negative
[2024-02-06] MEDS: HYDROmorphone HCL 2 MG TAB PO PRN (15:47)
[2024-02-06] MEDS: COLCHICINE 0.6 MG TAB PO SCH (16:31)
[2024-02-06] MEDS: LIDOCAINE 1%/EPINEPHRINE 1:100,000 50 ML VIAL INFIL ONE (18:39)
[2024-02-06] MEDS: SILVER NITR/POTASSIUM NITRATE APPLICATOR EXT ONE (18:40)
--- NOTE | 2024-02-06 18:50 | Procedure Note ---
Procedure Note Date of Service February 06, 2024 The details of the procedure were explained to the patient including the risks and benefits and consent was obtained. At the bedside, a skin lesion that was tried without acute inflammation was selected for biopsy. This was at the right inner thigh location. The area was prepped using Betadine after the patient confirmed he was not allergic to this. Local anesthetic was injected into the skin and subcutaneous tissues at the lesion. A 5 mm punch was initially taken and placed in a container containing formalin for pathology. A second superficial scraping biopsy was taken and placed in a dry container sent to pathology for further analysis. The area was treated with chemical cautery and dressed with a pressure dressing including dry gauze and ABD. The patient tolerated the procedure well stating he had no pain from this procedure whatsoever. [facility] Procedure Codes (Charges) Indication for Procedure Indication for procedure: diagnosis of skin condition Coding Additional Codes Date of Service (PG.SURGERY)
[2024-02-06] MEDS: GABAPENTIN 400 MG CAP PO SCH (19:47)
[2024-02-06] MEDS: valACYclovir HCL 500 MG TABLET PO SCH (19:47)
[2024-02-07] MEDS: HYDROmorphone HCL 4 MG TAB PO PRN (03:36)
[2024-02-07] MEDS ORDERED: VANCOMYCIN LEVEL ONE (05:00)
[2024-02-07] MEDS ORDERED: DEXTROAMPHETAMINE/AMPHETAMINE IR 20 MG TAB PO SCH (07:00)
[2024-02-07] MEDS: predniSONE 50 MG TAB PO SCH (08:18)
[2024-02-07] MEDS: HYDROmorphone HCL 2 MG TAB PO STA (09:10)
--- NOTE | 2024-02-07 13:58 | Hospitalist Progress Note ---
Date of Service February 07, 2024 Assessment & Plan (1) Behcet recurrent disease: (2) Ulceration, oral mucosa: (3) Ulcers of genital organ in male: (4) Nicotine dependence: (5) ADHD (attention deficit hyperactivity disorder): Plan Patient's ulcerations overall seems to be improving. Less inflamed, appears to be crusting over. Patient tolerating diet. 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 Continue oral steroids Discontinue triamcinolone and just use Desitin on genitalia Continue Zosyn Monitor wound culture Monitor pending laboratory studies If patient's continues to improve and the pain is controlled could consider discharging home in the next 1 to 2 days with outpatient dermatology follow-up Admission and Anticipated Discharge Date Admission Date: February 04, 2024 Subjective Patient still in significant mount of pain from his genital ulcers. His oral ulcers are improving and he is very happy to be able to eat. Reports that ointment being placed on his genitalia is burning Physical Exam Physical Exam: Constitutional: Alert, nontoxic HEENT: Oral ulcers and lesions with various stages of healing, some with eschar, no purulent drainage Lungs: Clear to auscultation, decreased, no wheezes rales or rhonchi CV: S1-S2, regular Abdomen: Soft, nontender, nondistended Extremities: No significant edema Derm: Patient's entire genitalia and scrotum and groin with open ulcerations. Extends around posteriorly to the rectum. Patchy ulcerations and eschars on upper arms and lateral thighs as well Neuro: No focal deficits Psych: Cooperative, at times can be agitated and abrasive Results & Data Results & Data Vital Signs (Past 12 Hours) Vital Signs Temp Pulse Resp BP Pulse Ox O2 Del Method 02/07/24 08:49 36.4 C L 84 18 135/83 100 Room Air Diagnostic Findings Reviewed imaging, laboratory and diagnostic studies. Pertinent findings as below. Punch biopsy pathology pending GC chlamydia pending HSV pending
--- NOTE | 2024-02-07 14:15 | Infectious Disease Consult ---
Date of Service February 07, 2024 Telehealth Information I performed this visit using a real-time telehealth connection between my location and the patients location ([facility]). After connecting through interactive tele-video, patient was identified by name and date of and/or wristband check.Patient (or authorized healthcare petroleum products sales representative) was informed that this was a telemedicine visit and it was being conducted confidentially over secure lines. My office door was closed and no one else was present in the room with me.Patient (or authorized healthcare petroleum products sales representative) provided consent to proceed with the visit, expressed an understanding of privacy and security of the telemedicine visit, and gave permission to have a hospital petroleum products sales representative in the room in order to assist with the visit and to conduct portions of the visit, as needed. I informed the patient (or authorized healthcare petroleum products sales representative) that I reviewed their record and presented the opportunity for them to ask any questions regarding the visit today. The patient agreed to participate. Assessment & Plan (1) Skin ulcers of both feet: Plan: Involving the mouth, genitals as well as palms and soles with multiple phases including bullous formation followed by excoriation and ulceration and without sparing of mucocutaneous membranes. (2) ADHD (attention deficit hyperactivity disorder): Plan: On Aderall. Plan At this point, there is no evidence of an infectious process underlying the ulceration; however, the scrotal ulcers are likely superinfected with tinea cruris and possibly bacterial infection. Therefore, I would recommend continuing antibacterial infection but no more than 7 days. Can continue on IV piperacillin tazobactam for now and step-down to oral Levaquin 750 mg once daily to complete a 7 day course. As for the tinea cruris, I would recommend using terbinafine cream 1% to be applied twice daily to the groin and scrotal area for a total duration of 2 weeks. If the patient could not tolerate the local terbinafine cream can use systemic terbinafine tablets 250 mg once daily for 2 weeks. Skin biopsy planned: In addition to pathology and immunohistochemistry, I would recommend sending for bacterial, fungal and AFB cultures. Please sent for CRP and ESR. I would also recommend repeating STD workup including HIV antigen/antibody, syphilis screen with reflex, viral hepatitis workup including hep C total antibodies, hep B anti core antibodies, hep B anterior surface antibodies, and hep B surface antigen. Also sent for chlamydia and gonorrhea PCR in urine. Based on pathology from back 2012 and 2013 of skin biopsies performed at [facility], there was some suggestion of drug-induced eruption. The patient was not given his Adderall while at [facility] and right after being released, he restarted his ADHD medications with concomitant appearance of these ulcers. One of the side effects of Adderall especially reported post marketing included excoriation, ulceration and even sometimes Javier Zaire syndrome. Therefore, I would consider holding the Adderall for now until after the biopsy results are back. History of Present Illness History of Present Illness Mr. Weinberg is a 33-year-old young man with medical history of ADHD and bipolar disorder, who was admitted to [facility] on 02/04/2024 because of multiple skin lesions involving the mouth and the genitalia as well as palms and soles for around 1 week prior to presentation. Per patient report, he attributed the current lesions to Behcet's disease flareup and he has been on prednisone taper for around 2-3 days prior to admission which were prescribed at an acute care. Based on previous [facility] Medical records, the patient presented to the emergency department in June 27, 2023 because of the same reason with HSV culture was obtained from a penile lesion which came back negative. He also had a record from [facility] in 2013 because of the same presentation including mouth and perirectal ulcers and was thought to have passes disease at that time. He was tested for HIV and then HSV PCR was obtained from the scrotum which came negative. He also had some connective tissue workup including BENJAMIN, antimitochondrial and anti-smooth muscle antibodies which also came back negative. On this presentation, he was a little bit hypertensive; otherwise the rest of the vitals were within normal limits. Initial workup showed leukocytosis of 16 (ANC 13), urine screen positive for opiates amphetamine and marijuana, Lyme screen negative and peripheral smear for parasite tibia negative as well. Because of concern for superimposed infection of the ulcers, the ID team was consulted for further recommendations and to help guide antibiotic treatment. Allergies Allergy/AdvReac Type Severity Reaction Status Date / Time tramadol [From Ultram] Allergy Intermediate HIVES/NAUSE Verified 07/03/23 19:32 A Home Medications Medication Instructions Recorded Confirmed Type buprenorphine 8 mg-naloxone 2 mg 1 film sublingual BID 07/03/23 07/03/23 History sublingual film dextroamphetamine-amphetamine 20 20 mg PO BID 07/03/23 07/03/23 History mg tablet gabapentin 300 mg capsule 300 mg PO TID 07/03/23 07/03/23 History (Neurontin) guanfacine 2 mg tablet 2 mg PO BID 07/03/23 07/03/23 History oxcarbazepine 600 mg tablet 600 mg PO BID 07/03/23 07/03/23 History colchicine 0.6 mg tablet (Colcrys) 0.6 mg PO BID #60 tabs 07/04/23 Rx dexamethasone 0.5 mg/5 mL oral 0.5 mg (5 mL) PO BID PRN mouth 07/04/23 Rx elixir sores #237 mL oxycodone 10 mg tablet 10 mg PO Q12H #8 tabs 07/04/23 Rx triamcinolone acetonide 0.1 % 0.6 cm dental TID #5 grams 07/04/23 Rx dental paste triamcinolone acetonide 0.1 % 1 applic EXT QID #80 grams 07/04/23 Rx topical cream prednisone 20 mg tablet 20 mg PO BID #15 tabs 01/24/24 Rx Patient History Medical History Skin lesion Family History Denies family history of Rheumatoid arthritis Social History Smoking Status: Current every day smoker Tobacco Type: E-cigarettes / Vaping Second Hand Exposure: No; Do You Dip or Chew Tobacco: No; Hx Alcohol Use: No Hx Substance Use: Yes Last Used Substance: Days (ago) Substance Use Type Other:: Marijuana Vape Preferred Language: Vietnamese Communication Ability: Effective Blueprint Developer Required: No Beliefs That Will Affect Care: None Current Living Situation: Significant Other Feels Safe at Home: Yes Assistive Devices: None Review of Systems Neg except for what was mentioned in H&P. Physical Exam Couldnt be obtained as the visit was conducted via telemed. Results & Data Vital Signs (Past 12 Hours) Vital Signs Temp Pulse Resp BP Pulse Ox O2 Del Method 02/07/24 08:49 36.4 C L 84 18 135/83 100 Room Air Laboratory Results Microbiology: 02/03: 1 set of blood culture negative to date 02/05: Superficial wound culture from genital lesion growing Pseudomonas Pathology on 10/20/2012: Scrotal skin biopsy showing benign ulcer with negative bacterial and viral cultures. Pathology on 05/25/2013: Biopsy of abdominal skin ulcer showing interface dermatitis with mixed infiltrate (this could suggest drug eruption). There is no evidence of contact or granulomatous dermatitis. An immuno bolus disorder should also be considered.
[2024-02-07 15:58] LABS: Chlam trach RNA(Genit,Ureth,Ur Not Detected (NotDetected); GC(Neis gon)RNA(Genit,Ureth,Ur Not Detected (NotDetected)
[2024-02-07] MEDS: levoFLOXacin 750 MG TAB PO SCH (17:40)
[2024-02-07] MEDS: TERBINAFINE CR 30 GM TUBE EXT SCH (22:26)
[2024-02-08 12:16] LABS: C Reactive Protein 0.5 mg/dl (0-0.5)
--- NOTE | 2024-02-08 18:00 | Hospitalist Progress Note ---
Date of Service February 08, 2024 Assessment & Plan (1) Behcet recurrent disease: (2) Ulceration, oral mucosa: (3) Ulcers of genital organ in male: (4) Nicotine dependence: (5) ADHD (attention deficit hyperactivity disorder): Plan Patient's ulcerations overall seems to be improving. Less inflamed, appears to be crusting over. Patient tolerating diet. 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 As was previously discussed w/ rheumatology. Skin biopsy obtained, results pending wound care Continue oral steroids ID consulted as well Orders placed, pending ESR, CRP normalized Transitioned to oral Levaquin per ID recommendation Use antifungal cream as recommended by ID Hold Adderall, adverse effect can be skin lesions/Harris-Zaire/toxic epidermal necrolysis Dermatology consulted - pt not seen while inpt yet If patient's continues to improve and the pain is controlled could consider discharging home in the next couple of days with outpatient dermatology follow- up Admission and Anticipated Discharge Date Admission Date: February 04, 2024 Subjective Pt seen in follow up Feels improving but still in significant pain from his genital ulcers. His oral ulcers are improving and he is able to eat. Reports pruritus. Not able to keep any clothes on. Review of Systems Review of Systems: All systems reviewed & are unremarkable except as noted in Subjective Physical Exam Physical Exam: Constitutional: WD/WN M in NAD HEENT: Oral ulcers and lesions with various stages of healing, some with eschar, no purulent drainage Lungs: Clear to auscultation, decreased, no wheezes rales or rhonchi CV: S1-S2, regular Abdomen: Soft, nontender, nondistended Extremities: No significant edema Derm: Patient's entire genitalia and scrotum and groin with open ulcerations. Extends around posteriorly to the rectum. Patchy ulcerations and eschars on upper arms and lateral thighs as well Neuro: No focal deficits Psych: Cooperative Results & Data Results & Data Vital Signs (Past 12 Hours) Vital Signs Temp Pulse Resp BP Pulse Ox O2 Del Method 02/08/24 10:15 36.4 C L 91 H 20 130/79 97 Room Air Laboratory Results 02/08/24 Range/Units 08:26 ESR 7 (0-15) mm/hr Creatinine 0.60 (0.6-1.4) mg/dl Est Cr Clr Drug Dosing 158.0 ml/min eGFR 129.10 C-Reactive Protein 0.50 (0-0.5) mg/dl Treponema pallidum Ab Pending Hepatitis A IgM Ab Pending Hep Bs Antigen Pending Hep B Core IgM Ab Pending Hepatitis C Antibody Pending HIV-1 RNA copies/mL Pending HIV-1 RNA logcopies/mL Pending Medications Administered Current Inpatient Medications Acetaminophen (Acetaminophen Susp 325 Mg/10.15 Ml Udc) 650 mg PO Q6H PRN PRN Reason: Pain or Fever Stop: 03/05/24 17:28 Last Admin: 02/07/24 22:13 Dose: 650 mg Amphetamine/Dextroamphetamine (Dextroamphetamine/Amphetamine Ir 20 Mg Tab) 20 mg PO DAILY@1200 [facility] Stop: 02/20/24 11:59 Last Admin: 02/07/24 12:14 Dose: 20 mg Amphetamine/Dextroamphetamine (Dextroamphetamine/Amphetamine Ir 20 Mg Tab) 40 mg PO DAILY@0630 [facility] Stop: 02/20/24 06:29 Last Admin: 02/07/24 08:16 Dose: 40 mg Colchicine (Colchicine 0.6 Mg Tab) 0.6 mg PO QAM [facility] Stop: 03/07/24 14:29 Last Admin: 02/08/24 09:50 Dose: 0.6 mg Gabapentin (Gabapentin 400 Mg Cap) 400 mg PO TID [facility] Stop: 03/07/24 20:59 Last Admin: 02/08/24 14:55 Dose: 400 mg Guanfacine HCl (Guanfacine Hcl 1 Mg Tab) 2 mg PO BID [facility] Stop: 03/06/24 20:59 Last Admin: 02/08/24 09:51 Dose: 2 mg Heparin Sodium (Porcine) (Heparin Sod 5,000 Unit/0.5 Ml Vial) 5,000 units SQ Q12 [facility] Stop: 03/05/24 20:59 Last Admin: 02/08/24 09:52 Dose: Not Given Hydromorphone HCl (Hydromorphone Hcl 4 Mg Tab) 4 mg PO Q3H PRN PRN Reason: Moderate Pain (Scale 4, 5, 6) Stop: 02/20/24 13:55 Last Admin: 02/07/24 08:16 Dose: 4 mg Hydromorphone HCl (Hydromorphone Hcl 2 Mg Tab) 6 mg PO Q3H PRN PRN Reason: Severe Pain (Scale 7, 8, 9,10) Stop: 02/20/24 13:55 Last Admin: 02/08/24 14:47 Dose: 6 mg Levofloxacin (Levofloxacin 750 Mg Tab) 750 mg PO DAILY@1100 [facility]; Protocol Stop: 02/10/24 23:00 Last Admin: 02/08/24 11:31 Dose: 750 mg Miscellaneous (Remove Nicoderm Patch) 1 each N/A DAILY@0859 [facility] Stop: 03/08/24 08:58 Last Admin: 02/08/24 07:50 Dose: Not Given Multi-Ingredient Mouthwash/Gargle (First - Mouthwash Blm 5 Ml Udp) 5 ml PO Q4H PRN PRN Reason: oral sores Stop: 03/05/24 20:11 Last Admin: 02/07/24 08:16 Dose: 5 ml Nicotine (Nicotine 21 Mg/24 Hr Tdsy) 1 patch TD QAM [facility] Stop: 03/07/24 11:59 Last Admin: 02/08/24 09:52 Dose: Not Given Oxcarbazepine (Oxcarbazepine 150 Mg Tablet) 600 mg PO BID [facility] Stop: 03/06/24 20:59 Last Admin: 02/08/24 09:51 Dose: 600 mg Pantoprazole Sodium (Pantoprazole 40 Mg Tab) 40 mg PO BID [facility] Stop: 03/06/24 20:59 Last Admin: 02/08/24 09:50 Dose: 40 mg Prednisone (Prednisone 50 Mg Tab) 50 mg PO DAILY [facility] Stop: 03/08/24 08:59 Last Admin: 02/08/24 09:49 Dose: 50 mg Terbinafine HCl (Terbinafine Cr 30 Gm Tube) 1 appln EXT BID [facility] Stop: 03/08/24 20:59 Last Admin: 02/08/24 09:52 Dose: 1 appln Valacyclovir HCl (Valacyclovir Hcl 500 Mg Tablet) 1,000 mg PO BID [facility] Stop: 02/13/24 20:59 Last Admin: 02/08/24 09:49 Dose: 1,000 mg
[2024-02-09 08:53] LABS: Treponema pallidum RflxConfirm Negative (Negative)
[2024-02-09 08:54] LABS: Hep B Surface Ag with confirm Negative (Negative)
[2024-02-09 09:00] LABS: Hep C Ab Rflx HepCQuant RNA Negative (Negative)
--- NOTE | 2024-02-09 10:39 | Infectious Disease Progress Nt ---
Date of Service February 09, 2024 Telehealth Information This note is written after EMR review and discussion w/ Dr. Ortiz. Assessment & Plan (1) Behcet recurrent disease: Plan: I see that the culture from 02/05 (Penis) grew MSSA as well as PSA. If infections is still suggested in that region, I suggest you cover the MSSA as well w/ either cefadroxil 1000 mg po bid or keflex 500 mg po qid along w/ the levofloxacin. (2) Superimposed infection: Plan: The culture from 02/05 (penis culture) showed PSA and MSSA. I have advised Dr. Ortiz to add MSSA coverage, either keflex 500 mg po qid or cefadroxil 1000 mg po bid, continuing LVQ as planned. ID signing off for now but advised to contact again if any issue or concern. Case discussed w/ Dr. Ortiz. Results & Data Vital Signs (Past 12 Hours) Vital Signs Temp Pulse Resp BP Pulse Ox O2 Del Method 02/09/24 08:31 36.3 C L 70 18 157/83 H 97 Room Air
--- NOTE | 2024-02-09 10:46 | Hospitalist Progress Note ---
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 Less inflamed, appears to be crusting over. Patient tolerating diet. 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 As was previously discussed w/ rheumatology. Skin biopsy obtained, results pending wound cultx (penis) - posit. 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 for MSSA as well- Contacted by ID to add cefadroxil 1000 mg po bid or keflex 500 mg po qid along w/ the levofloxacin. Dermatology consulted - pt not seen while inpt yet If patient's continues to improve and the pain is controlled could consider discharging home in the next several days with outpatient dermatology follow-up Admission and Anticipated Discharge Date Admission Date: February 04, 2024 Subjective Pt seen in follow up Seen again with RN at the bedside Feels improving but still in significant pain from his genital ulcers. His oral ulcers are improving and he is able to eat. Reports pruritus. When seen yesterday, Not able to keep any clothes on. Today has some dressings and a sheet on. Denies any chest pain, shortness of breath, abd. pain. Contacted by ID - Dr. Rice this AM - MSSA also growing on cultx - adding cefadroxil 1,000 bid Review of Systems Review of Systems: All systems reviewed & are unremarkable except as noted in Subjective Physical Exam Physical Exam: Constitutional: WD/WN M in NAD HEENT: Oral ulcers and lesions with various stages of healing, some with eschar, no purulent drainage Lungs: Clear to auscultation, decreased, no wheezes rales or rhonchi CV: S1-S2, regular Abdomen: Soft, nontender, nondistended Extremities: No significant edema Derm: Patient's entire genitalia and scrotum and groin with open ulcerations. Extends around posteriorly to the rectum. Patchy ulcerations and eschars on upper arms and lateral thighs as well Neuro: No focal deficits Psych: Cooperative Results & Data Results & Data Vital Signs (Past 12 Hours) Vital Signs Temp Pulse Resp BP Pulse Ox O2 Del Method 02/09/24 08:31 36.3 C L 70 18 157/83 H 97 Room Air Laboratory Results 02/08/24 Range/Units 08:26 Creatinine 0.60 (0.6-1.4) mg/dl Est Cr Clr Drug Dosing 158.0 ml/min eGFR 129.10 C-Reactive Protein 0.50 (0-0.5) mg/dl Treponema pallidum Ab Negative (Negative) Hep Bs Antigen Negative (Negative) Hepatitis C Antibody Negative (Negative) Medications Administered Current Inpatient Medications Acetaminophen (Acetaminophen Susp 325 Mg/10.15 Ml Udc) 650 mg PO Q6H PRN PRN Reason: Pain or Fever Stop: 03/05/24 17:28 Last Admin: 02/08/24 18:22 Dose: 650 mg Amphetamine/Dextroamphetamine (Dextroamphetamine/Amphetamine Ir 20 Mg Tab) 20 mg PO DAILY@1200 [facility] Stop: 02/20/24 11:59 Last Admin: 02/07/24 12:14 Dose: 20 mg Amphetamine/Dextroamphetamine (Dextroamphetamine/Amphetamine Ir 20 Mg Tab) 40 mg PO DAILY@0630 [facility] Stop: 02/20/24 06:29 Last Admin: 02/07/24 08:16 Dose: 40 mg Cefadroxil (Cefadroxil 500 Mg Cap) 1,000 mg PO BID [facility] Stop: 02/16/24 10:44 Colchicine (Colchicine 0.6 Mg Tab) 0.6 mg PO QAM [facility] Stop: 03/07/24 14:29 Last Admin: 02/09/24 07:46 Dose: 0.6 mg Gabapentin (Gabapentin 400 Mg Cap) 400 mg PO TID MIMI Stop: 03/07/24 20:59 Last Admin: 02/09/24 07:51 Dose: 400 mg Guanfacine HCl (Guanfacine Hcl 1 Mg Tab) 2 mg PO BID MIMI Stop: 03/06/24 20:59 Last Admin: 02/09/24 07:46 Dose: 2 mg Heparin Sodium (Porcine) (Heparin Sod 5,000 Unit/0.5 Ml Vial) 5,000 units SQ Q12 [facility] Stop: 03/05/24 20:59 Last Admin: 02/09/24 07:59 Dose: 5,000 units Hydromorphone HCl (Hydromorphone Hcl 4 Mg Tab) 4 mg PO Q3H PRN PRN Reason: Moderate Pain (Scale 4, 5, 6) Stop: 02/20/24 13:55 Last Admin: 02/07/24 08:16 Dose: 4 mg Hydromorphone HCl (Hydromorphone Hcl 2 Mg Tab) 6 mg PO Q3H PRN PRN Reason: Severe Pain (Scale 7, 8, 9,10) Stop: 02/20/24 13:55 Last Admin: 02/09/24 07:44 Dose: 6 mg Lactobacillus Acidophilus (Advanced Probiotic 625 Mg Capsule) 1,250 mg PO DAILY [facility] Stop: 03/10/24 10:44 Levofloxacin (Levofloxacin 750 Mg Tab) 750 mg PO DAILY@1100 [facility]; Protocol Stop: 02/10/24 23:00 Last Admin: 02/09/24 10:37 Dose: 750 mg Miscellaneous (Remove Nicoderm Patch) 1 each N/A DAILY@0859 [facility] Stop: 03/08/24 08:58 Last Admin: 02/09/24 07:51 Dose: 1 each Multi-Ingredient Mouthwash/Gargle (First - Mouthwash Blm 5 Ml Udp) 5 ml PO Q4H PRN PRN Reason: oral sores Stop: 03/05/24 20:11 Last Admin: 02/07/24 08:16 Dose: 5 ml Nicotine (Nicotine 21 Mg/24 Hr Tdsy) 1 patch TD QAM [facility] Stop: 03/07/24 11:59 Last Admin: 02/09/24 07:54 Dose: Not Given Oxcarbazepine (Oxcarbazepine 150 Mg Tablet) 600 mg PO BID [facility] Stop: 03/06/24 20:59 Last Admin: 02/09/24 07:50 Dose: 600 mg Pantoprazole Sodium (Pantoprazole 40 Mg Tab) 40 mg PO BID [facility] Stop: 03/06/24 20:59 Last Admin: 02/09/24 07:47 Dose: 40 mg Prednisone (Prednisone 50 Mg Tab) 50 mg PO DAILY [facility] Stop: 03/08/24 08:59 Last Admin: 02/09/24 07:49 Dose: 50 mg Terbinafine HCl (Terbinafine Cr 30 Gm Tube) 1 appln EXT BID MIMI Stop: 03/08/24 20:59 Last Admin: 02/09/24 07:52 Dose: 1 appln Valacyclovir HCl (Valacyclovir Hcl 500 Mg Tablet) 1,000 mg PO BID MIMI Stop: 02/13/24 20:59 Last Admin: 02/09/24 07:48 Dose: 1,000 mg
[2024-02-09] MEDS: ADVANCED PROBIOTIC 625 MG CAPSULE PO SCH (12:26)
[2024-02-09] MEDS: cefaDROXiL 500 MG CAP PO SCH (12:26)
[2024-02-09 12:52] LABS: Amphetamine Urine, Confirm >15000 ng/mL (<250); Codeine Urine NEGATIVE ng/mL (<50); Hydrocodone Urine NEGATIVE ng/mL (<50); Hydromor Urine 511 ng/mL (<50); Marijuana Quant, GCMS Urine 1132 ng/mL (<5); Methamphetamine, Ur Confirm 2528 ng/mL (<250); Morphine Urine NEGATIVE ng/mL (<50); Norhydrocodone Conf Ur NEGATIVE ng/mL (<50); Noroxycodone Urine NEGATIVE ng/mL (<50); Oxycodone Urine NEGATIVE ng/mL (<50); Oxymorph Urine NEGATIVE ng/mL (<50)
[2024-02-10 05:33] LABS: Babesia microti DNA Not Detected (Not Detected); Q Fever IgG, Phase I NEGATIVE; Q Fever Phase I IgM Antibody NEGATIVE; Q Fever Phase II IgG Antibody NEGATIVE; Q Fever Phase II IgM Antibody NEGATIVE; R. typhi IgG Ab NOT DETECTED; R. typhi IgM Ab NOT DETECTED; RMSF IgG Ab NOT DETECTED; RMSF IgM Ab NOT DETECTED
[2024-02-10 08:56] LABS: Hematocrit (blood only) 46.5 % (42.0-52.0); Hemoglobin 15.8 g/dl (14.0-18.0); Mean Corpuscular Hemoglobin 28.9 pg (25.0-34.0); Mean Corpuscular Volume 85.2 fL (80.0-100.0); Mean Platelet Volume 8.5 fL (9.4-12.4); Platelet Count 402 K/uL (130-400); RDW Coefficient of Variation 13.2 % (11.5-14.5); RDW Standard Deviation 40.7 fL (36.4-46.3); Red Blood Count 5.46 M/uL (4.70-6.10); White Blood Count 17.25 K/ul (4.8-10.8)
[2024-02-10 09:18] LABS: BUN Creatinine Ratio 25.3 (10-20); Calcium 9.5 mg/dl (8.6-10.3); Creatinine Clr Calc Pharmacy 114.6 ml/min; Magnesium 1.9 mg/dl (1.7-2.4); Phosphorus 3.5 mg/dl (2.5-4.9); Potassium 4.2 mmol/L (3.5-5.1)
[2024-02-10] MEDS ORDERED: LORazepam 0.5 MG TAB PO PRN (12:50)
--- NOTE | 2024-02-10 14:55 | Hospitalist Progress Note ---
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 Less inflamed, appears to be crusting over. Patient tolerating diet. 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 As was previously discussed w/ rheumatology. Skin biopsies obtained, resulting this afternoon - specimens are consistent with bacterial infection, correlating with would culture Per path report: * Punch biopsy with extensive intracorneal acute inflammation with features suggestive of a corneal pustule is seen. The dermis reveals mild perivascular lymphocytic inflammation without eosinophiles. * PASF stains in search of fungal hyphae and spores are performed on both parts A and B and the stains are negative. * Please note that the changes of pyoderma gangrenosum, one of the skin manifestations of Behcet's syndrome, is not seen. "In light of the culture results from the skin lesion of the penis, these two current specimens are best considered intracorneal pustules related to a bacterial infection. Clearly, clinical correlation is required in this regard and if this patient's ulcers of the skin do not resolve with conservative therapy and antibiotics, repeat biopsy with a piece of skin placed into Iris's media for direct immunofluorescence studies should be strongly considered." Preliminary wound cultx (penis) - posit. for Pseudomonas and MSSA - ID consulted- continue Levofloxacin, Cefadroxil 1,000mg BID Continue oral steroids ESR, CRP normalized Hepatitis, HSV, HIV labs pending, N. gonorrhea negative Transitioned to oral Levaquin per ID recommendation Use antifungal cream- Terbinafine BID - as recommended by ID Hold Adderall, adverse effect can be skin lesions/Harris-Zaire/toxic epidermal necrolysis Dermatology consulted - pt not seen while inpt yet If patient's continues to improve and the pain is controlled, could consider discharging home in the next several days with outpatient rheumatology and dermatology follow-up Care coordinated with Dr. Kirkland. I spent a total of 50 minutes coordinating, documenting, and providing care for this patient excluding time spent in the performance of separately billed services. Admission and Anticipated Discharge Date Admission Date: February 04, 2024 Supervising Physician Co-Signing Physician Notes Attending addendum: The patient was seen and examined in medical floor He has significant generalized his skin ulcers/wound and rash involving orogenital mucosa and palms and soles He is in pain and also has significant anxiety He denies any fever and/or chills On examination He cannot keep any goals any higher over his body due to increasing pain Remains hemodynamically stable Chestclear to auscultation bilaterally HeartS1-S2, regular CNSalert, awake and oriented and no focal neurodeficit A&P General examination of the skin showed generalized ulcers/wound with infection/rash involving urogenital mucosa, palms and soles Likely secondary to extraintestinal manifestations of Behcet's disease Has been getting antibiotics for superinfection as per advised by the ID specialist His overall condition is getting better and now awaiting skin biopsy He will be given medications for anxiety as long as his ADHD medications are on hold Agree with assessment and plan as outlined above by Keturah Leblanc PA-C and take the full responsibility of care in the hospital DR Berna Kirkland Subjective Pt seen in follow up in -. Feeling he is continuing to improve from pain perspective from genital ulcers, lesions on hands and feel, oral ulcers. Pain and itching but able to eat. Painful to have clothing touch ulcers. Denies any other acute changes overnight. No F/C, lightheadedness, chest pain, shortness of breath, abd. pain. Review of Systems Review of Systems: At least ten systems reviewed and negative except as noted in the HPI. Physical Exam Physical Exam: Constitutional: WD/WN male, resting watching TV HEENT: Oral ulcers and lesions with various stages of healing, some with eschar, no purulent drainage Lungs: Clear to auscultation, decreased, no wheezes rales or rhonchi CV: S1-S2, regular Abdomen: Soft, nontender, nondistended Extremities: No significant edema Skin: + Widespread erythema and ulcerated lesions noted on penis and scrotal area, medial thighs and extending posteriorly towards rectum. Patchy ulcerations on upper arms and lateral thighs as well Neuro: No focal deficits Psych: Cooperative Results & Data Results & Data Vital Signs (Past 12 Hours) Vital Signs Temp Pulse Resp BP Pulse Ox O2 Del Method 02/10/24 14:40 36.6 C 95 H 16 138/94 99 Room Air 02/10/24 07:53 36.3 C L 103 H 16 149/97 H 100 Room Air Laboratory Results Short CBC 02/10/24 Range/Units 08:34 WBC 17.25 H (4.8-10.8) K/ul Hgb 15.8 (14.0-18.0) g/dl Hct 46.5 (42.0-52.0) % Plt Count 402 H (130-400) K/uL BMP 02/10/24 08:34 Sodium 133 L Potassium 4.2 Chloride 94 L Carbon Dioxide 32 BUN 21 Creatinine 0.83 Glucose 163 H Calcium 9.5
[2024-02-10] MEDS: BUTT PASTE (ZINC OXIDE 16%) 171 APPLN/57 GM JAR EXT SCH (15:57)
--- NOTE | 2024-02-11 08:12 | Hospitalist Progress Note ---
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 Less inflamed, appears to be crusting over. Patient tolerating diet. 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 As was previously discussed w/ rheumatology. Skin biopsies obtained, resulting this afternoon - specimens are consistent with bacterial infection, correlating with would culture Per path report: * Punch biopsy with extensive intracorneal acute inflammation with features suggestive of a corneal pustule is seen. The dermis reveals mild perivascular lymphocytic inflammation without eosinophiles. * PASF stains in search of fungal hyphae and spores are performed on both parts A and B and the stains are negative. * Please note that the changes of pyoderma gangrenosum, one of the skin manifestations of Behcet's syndrome, is not seen. "In light of the culture results from the skin lesion of the penis, these two current specimens are best considered intracorneal pustules related to a bacterial infection. Clearly, clinical correlation is required in this regard and if this patient's ulcers of the skin do not resolve with conservative therapy and antibiotics, repeat biopsy with a piece of skin placed into Iris's media for direct immunofluorescence studies should be strongly considered." Preliminary wound cultx (penis) - posit. for Pseudomonas and MSSA - ID consulted- continue Levofloxacin, Cefadroxil 1,000mg BID Continue oral steroids ESR, CRP normalized Hepatitis, HSV, HIV labs pending, N. gonorrhea negative Continues oral Levaquin per ID recommendation Use antifungal cream- Terbinafine BID - as recommended by ID Restart Adderall and monitor; patient ADHD symptoms worsening with flight of ideas, rapid, erratic speech Dermatology consulted - pt not seen while inpt yet; need close follow up post dc DC Ativan 02/10 -Continue p.o. Dilaudid for now and adjust/prolong. frequency dosing relies 4 doses of p.o. Dilaudid over past 24 hours. If patient's continues to improve and the pain is controlled, could consider discharging home in the next several days with outpatient rheumatology and eliseo matology follow-up Would consider HLA B51 test while here inpatient to confirm Bechets Care coordinated with Dr. Kirkland. I spent a total of 52 minutes coordinating, documenting, and providing care for this patient excluding time spent in the performance of separately billed services. Admission and Anticipated Discharge Date Admission Date: February 04, 2024 Supervising Physician Co-Signing Physician Notes 02/11/2024 The patient was seen and examined in medical floor He has been feeling much better and the rashes are improved too He wants to go home on examination Standing beside the bed without any evidence of acute distress except some discomfort secondary to skin lesions Remains afebrile and hemodynamically stable Other system examination is unremarkable His labs and medications reviewed. Pathology from the skin biopsy did not show any significant evidence of pyoderma gangrenosum typical of Behcet's disease but it did show infection and subsequent changes in the skin otherwise His medications for ADHD will be started today and will be observed for the next 24 hours Likely discharge tomorrow or day after Agree with assessment and plan as outlined above by Akua DIGGS and take the full responsibility of care in the hospital Dr Berna Kirkland Subjective Pt seen in follow up in room #302 Feeling he is continuing to improve from pain perspective from genital ulcers, lesions on hands and feel, oral ulcers. His skin sloughed of his bilateral hands overnight; no bleeding or penetrated skin. Pain and itching remains - but able to eat and was able to hold his video game controller without pain. Painful to have clothing touch ulcers, specifically painful to have clothing touch ulcer specifically around his waistline. He was able to self apply Xeroform and Kerlex gauze; recommended netting underwear without elastic band. No fever/chills, lightheadedness, chest pain, shortness of breath, abdominal pain. His skin sloughed off of his hands bilaterally overnight however no bleeding or penetrated skin identified. Denies any other acute changes overnight. No F/C, lightheadedness, chest pain, shortness of breath, abd. pain. reportedly his ADHD symptoms have worsened since his medication has been on hold: see further plan below Patient eager to be discharged but willing to stay until Saturday 02/11 to ensure he continues to improve. Review of Systems Review of Systems: At least ten systems reviewed and negative except as noted in the HPI. Physical Exam Physical Exam: Neuro: AAOx4, PERRLA, no aphagia, memory changes, CNII-XII grossly intact. HEENT: head normocephalic, moist mucus membranes CV: S1/S2, (-) M/G/R, (-) edema, cap refill < 3 seconds Resp: Lungs CTA in all archer. On RA GI: Abdomen S/NT/ND, Ax4 bowel sounds, (-) CVA tenderness Musculoskeletal: 5/5 B/L UE strength, 5/5 B/L LE strength. No gait disturbance Skin: (+) rashes , (+) erythema. B/L feet with sloughing skin, B/L hands with sloughing skin, interior thighs purpura extending to anal region of buttocks. Oral ulcers improving and scabbing. Numerous bullous on torso without excoriation or bleeding. Psych: euthymic mood Results & Data Results & Data Laboratory Results Short CBC 02/10/24 Range/Units 08:34 WBC 17.25 H (4.8-10.8) K/ul Hgb 15.8 (14.0-18.0) g/dl Hct 46.5 (42.0-52.0) % Plt Count 402 H (130-400) K/uL BMP 02/10/24 08:34 Sodium 133 L Potassium 4.2 Chloride 94 L Carbon Dioxide 32 BUN 21 Creatinine 0.83 Glucose 163 H Calcium 9.5
[2024-02-11 08:33] LABS: Hematocrit (blood only) 40.6 % (42.0-52.0); Hemoglobin 14.1 g/dl (14.0-18.0); Mean Corpuscular Hemoglobin 28.9 pg (25.0-34.0); Mean Corpuscular Hgb Conc 34.7 g/dL (32.0-36.0); Mean Corpuscular Volume 83.2 fL (80.0-100.0); Mean Platelet Volume 8.3 fL (9.4-12.4); Platelet Count 324 K/uL (130-400); RDW Coefficient of Variation 13.2 % (11.5-14.5); RDW Standard Deviation 39.5 fL (36.4-46.3); Red Blood Count 4.88 M/uL (4.70-6.10); White Blood Count 17.27 K/ul (4.8-10.8)
[2024-02-11 08:49] LABS: BUN Creatinine Ratio 32.4 (10-20); Calcium 8.7 mg/dl (8.6-10.3); Creatinine Clr Calc Pharmacy 128.5 ml/min; Magnesium 1.8 mg/dl (1.7-2.4); Potassium 3.7 mmol/L (3.5-5.1)
[2024-02-11] MEDS: HYDROmorphone HCL 2 MG TAB PO PRN (14:42)
[2024-02-11 18:02] LABS: HSV Type 1 DNA Not Detected (Not Detected); HSV Type 1&2 DNA Source Serum; HSV Type 2 DNA Not Detected (Not Detected)
[2024-02-11 22:52] LABS: HIV 1 RNA PCR Copies/ML Not Detected Copies/mL; HIV-1 RNA Log Copies/mL Not Detected Log cps/mL; Hepatitis A Antibody IgM NON-REACTIVE (NON-REACTIVE); Hepatitis B Core Antibody IgM NON-REACTIVE (NON-REACTIVE)
[2024-02-12] MEDS: MELATONIN 3 MG TAB PO PRN ×2 (02:12→03:36)
--- NOTE | 2024-02-12 12:50 | Hospitalist Progress Note ---
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 Less inflamed, appears to be crusting over. Patient tolerating diet. 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 As was previously discussed w/ rheumatology. Skin biopsies obtained, resulting this afternoon - specimens are consistent with bacterial infection, correlating with would culture Per path report: * Punch biopsy with extensive intracorneal acute inflammation with features suggestive of a corneal pustule is seen. The dermis reveals mild perivascular lymphocytic inflammation without eosinophiles. * PASF stains in search of fungal hyphae and spores are performed on both parts A and B and the stains are negative. * Please note that the changes of pyoderma gangrenosum, one of the skin manifestations of Behcet's syndrome, is not seen. "In light of the culture results from the skin lesion of the penis, these two current specimens are best considered intracorneal pustules related to a bacterial infection. Clearly, clinical correlation is required in this regard and if this patient's ulcers of the skin do not resolve with conservative therapy and antibiotics, repeat biopsy with a piece of skin placed into Iris's media for direct immunofluorescence studies should be strongly considered." Preliminary wound cultx (penis) - posit. for Pseudomonas and MSSA - ID consulted- continue Levofloxacin, Cefadroxil 1,000mg BID Continue oral steroids ESR, CRP normalized Hepatitis, HSV, HIV labs pending, N. gonorrhea negative Use antifungal cream- Terbinafine BID - as recommended by ID Restart Adderall and monitor; patient ADHD symptoms worsening with flight of ideas, rapid, erratic speech Dermatology consulted - pt not seen while inpt yet; need close follow up post dc DC Ativan 02/10 Continue p.o. Dilaudid for now and adjust/prolong frequency. Received THREE doses of p.o. Dilaudid over past 24 hours. If patient's continues to improve and the pain is controlled, could consider discharging home in the next several days with outpatient rheumatology and dermatology follow-up Would consider HLA B51 test while here inpatient to confirm Bechets. Care coordinated with Dr. Kirkland. I spent a total of 55 minutes coordinating, documenting, and providing care for this patient excluding time spent in the performance of separately billed services. Admission and Anticipated Discharge Date Admission Date: February 04, 2024 Supervising Physician Co-Signing Physician Notes 02/12/2024 The patient was seen and examined with medical floor He has been stable and complaining of more pain today and more anxiety Since that he has some oral bleeding likely secondary to eating solid food He denies any fever and chills On examination Lying in bed with some distress due to discomfort all over her body secondary to skin lesions Remains hemodynamically stable System examination unremarkable Still has significant bruising to ulcerations and erythematous lesions involving the multiple areas of the body including palms and soles Medications reviewed He has been on steroid and antibiotic for generalized stimulation which could be complicated by Behcet's disease Agree with assessment plan as outlined above Jb DIGGS and take the full care in the hospital Dr Berna Kirkland Subjective Pt seen in follow up in room #302 He was groaning when I approached his room; he feels most comfortable naked without anything touching his skin. He is having bleeding oral ulcers which is worsened from yesterday. He states that he feels that he is swallowing some of his skin with his morning oatmeal. New upper torso petechiae; he feels that it was exacerbated from a shower that he took last evening. Yesterday, there was some signs of improvement from pain perspective from genital ulcers, lesions on hands and feel, oral ulcers and his skin sloughed of his bilateral hands overnight; no bleeding or penetrated skin. Yesterday, pain and itching remains - but able to eat and was able to hold his video game controller without pain. Painful to have clothing touch ulcers, specifically painful to have clothing touch ulcer specifically around his waistline. He was able to self apply Xeroform and Kerlex gauze; recommended netting underwear without elastic band. No fever/chills, lightheadedness, chest pain, shortness of breath, abdominal pain. His skin sloughed off of his hands bilaterally overnight however no bleeding or penetrated skin identified. Denies any other acute changes overnight. No F/C, lightheadedness, chest pain, shortness of breath, abd. pain. -Refused blood work and an IV on 02/11 Patient eager to be discharged but willing to stay until Sunday 02/12 to ensure he continues to improve. Review of Systems Review of Systems: Neuro: (-) Falls, trauma, slurred speech HEENT: (-) BOWEN, dizziness, dysphagia, visual or auditory changes CV: (-) CP, palpitations, swelling Resp: (-) SOB GI: (-) appetite changes, N/V/D, bowel changes : (-) urinary changes Skin: (+) rashes, ulcerations Psych: (-) anxiety, depression Physical Exam Physical Exam: Neuro: AAOx4, PERRLA, no aphagia, memory changes, CNII-XII grossly intact. HEENT: head normocephalic, moist mucus membranes CV: S1/S2, (-) M/G/R, (-) edema, cap refill < 3 seconds Resp: Lungs CTA in all archer. On RA GI: Abdomen S/NT/ND, Ax4 bowel sounds, (-) CVA tenderness Musculoskeletal: 5/5 B/L UE strength, 5/5 B/L LE strength. No gait disturbance Skin: (+) rashes , (+) erythema. B/L feet with sloughing skin, B/L hands with sloughing skin, interior thighs purpura extending to anal region of buttocks. Oral ulcers improving and scabbing. Numerous bullous on torso without excoriation or bleeding. Psych: euthymic mood Results & Data Results & Data Vital Signs (Past 12 Hours) Vital Signs Temp Pulse Resp BP Pulse Ox O2 Del Method 02/12/24 07:25 36.8 C 73 18 153/87 H 98 Room Air
--- NOTE | 2024-02-13 10:35 | Discharge Summary ---
Discharge Summary Date of Service February 13, 2024 Principal Dx & Hospital Course #1 = Principal Diagnosis (1) Behcet recurrent disease: (2) Ulceration, oral mucosa: (3) Ulcers of genital organ in male: (4) Nicotine dependence: (5) ADHD (attention deficit hyperactivity disorder): Plan Patient's ulcerations overall seems to be improving. Less inflamed, appears to be crusting over. Patient tolerating diet. Pt previously dx with Bechet disease, but has been noncompliant with any follow up. He was seen by rheumatology who did not feel this was consistent with Bechets and current biopies appear to be more bacterial ? if this is a superinfection of current underlying condition. Skin biopsies obtained - specimens are consistent with bacterial infection, correlating with would culture Per path report: * Punch biopsy with extensive intracorneal acute inflammation with features suggestive of a corneal pustule is seen. The dermis reveals mild perivascular lymphocytic inflammation without eosinophiles. * PASF stains in search of fungal hyphae and spores are performed on both parts A and B and the stains are negative. * Please note that the changes of pyoderma gangrenosum, one of the skin manifestations of Behcet's syndrome, is not seen. "In light of the culture results from the skin lesion of the penis, these two current specimens are best considered intracorneal pustules related to a bacterial infection. Clearly, clinical correlation is required in this regard and if this patient's ulcers of the skin do not resolve with conservative therapy and antibiotics, repeat biopsy with a piece of skin placed into Mi radha's media for direct immunofluorescence studies should be strongly considered." Wound cultx (penis) - posit. for Pseudomonas and MSSA - ID consulted-tx with Levofloxacin, and will continue Cefadroxil 1,000mg BID through 02/16 Continue prednisone 50mg daily until follow up with outpt rheumatology for appropriate taper ESR, CRP normalized Hepatitis, HSV, HIV labs pending, N. gonorrhea negative Use antifungal cream- Terbinafine BID - as recommended by ID for 2 total weeks Has follow up with outpatient Dermatology on 02/14/23. Care coordinated with Dr. Kirkland. I spent a total of 45 minutes coordinating, documenting, and providing care for this patient excluding time spent in the performance of separately billed services. Notes For Next Care Provider Please ensure patient has appropriate follow up with Rheumatology and Dermatology. He will need a referral to Rheumatology. He saw Dr. Avitia while hospitalized with [facility] Rheumatology. Pt with prior substance abuse history. Given significant pain he was sent with oxycodone. This will need to be monitored closely. He was prescribed oral prednisone 50mg daily. This will need to be tapered per Rheumatology. Medication Changes From Visit 1. You will continue to take Prednisone 50 mg daily until otherwise instructed by your PCP or a specialist. 2. You will continue to use the topical cream Terbinafine 1% to be applied twice daily to the groin and scrotal area for a total duration of 2 weeks. 3. You will continue your oral antibiotic Cefadroxil 1,000 mg orally twice daily for through 02/16/23. 4. You were prescribed a medication, Pantoprazole 40mg by mouth daily, to protect your stomach while you are on your prednisone therapy. 5. You were prescribed a short course of pain medication to help assist with your discomfort. It is also recommended that you use over the counter Tylenol as needed. Admission HPI Per Admitting Provider 33-year-old male with PMH of stomatitis, mucositis, ADHD without hyperactivity, bipolar 1 disorder, depression, Behcet's syndrome presents with worsening skin lesions. He reports worsening mouth and genitalia skin lesions since about 7 to 9 days, he has sudden outbreak of palm and sole lesions since about 1 to 2 days. He reports lesions worsening. He reports not being able to eat due to mouth lesions since about 2 to 3 days. The lesions are painful and itchy. Patient denies trauma or fall. Patient denies fever/sore throat/cough/chest pain/palpi tation/pain or burning while passing urine. Patient has moved last bowel around 2 to 3 days ago, is moving gas, denies abdominal pain. Patient reports he had an episode of Behcet's syndrome flare in 2020 and then he had about 2 more flares in the last 6 months. This is his third flare in the last 6 months per patient. Patient has not followed up with his outpatient rheumatology and dermatology, rather he is going to acute care for steroid prescriptions during flareups. This time he has been on prednisone taper for about 2 to 3 days prior to arrival. ED physician discussed with rheumatology for recommendation, plan is to continue with IV steroid. Also they discussed with general surgery for skin biopsy. Medications were reviewed with the patient at bedside: Patient does not take Sub oxone/colchicine/oxycodone. He reports he takes Adderall 40 mg in the morning and 20 mg in the noon, gabapentin 300 mg 3 times a day, guanfacine 2 mg twice a day, oxcarbazepine 600 mg twice a day. Patient reports he vapes nicotine, denies alcohol and recreational drug use. Full code as per my discussion with the patient. Plan of care discussed with the patient in detail. Admission Exam Per Admitting Provider GENERAL: Alert and oriented x3. mild distress due to painful lesions, on RA. HEENT: No pallor, no icterus. Pupils equal, round and reactive to light. Oral mucosa w/ ulcerations of lips, erythema and ulcerations of hard and soft palate. NECK: No JVD, no neck masses. HEART: S1 and S2 heard. Regular rate and rhythm. No murmur, no gallop. RESPIRATORY SYSTEM: Normal AP diameter. No accessory muscle use. No wheezing, no crackles. ABDOMEN: Soft, bowel sounds present, nontender, no distention. CENTRAL NERVOUS SYSTEM: No facial droop. Speech is clear. Obeys simple commands. Moves extremities. EXTREMITIES: No edema, no erythema seen. Skin: Discrimination and blisters in bilateral hands and feet. Skin lesions with erythema involving genitalia extensively including scrotal region, back of left thigh. Lesions are painful. No purulence noted. Discharge Exam Gen: WD/WN, NAD, A&O x3 HEENT: Normocephalic, atraumatic, conjunctivae moist, sclerae anicteric, mucous membranes dry with lip ulcerations Lung: Clear to Auscultation bilaterally, no wheezes/rales/rhonchi Heart: Regular rate, regular rhythm, no murmurs, rubs, or gallops Abdomen: Soft, NT, ND +BS x 4 Extremities: No edema Skin: warm, petechiae to anterior chest wall, multiple areas of cutaneous lesions/skin sloughing to hands/feet/genitals and buttock/rectal area, no apparent surrounding infection noted Updated Medication List Medication Instructions Recorded Confirmed Type dextroamphetamine-amphetamine 20 40 mg PO QAM 07/03/23 02/08/24 History mg tablet gabapentin 300 mg capsule 300 mg PO TID 07/03/23 02/08/24 History (Neurontin) guanfacine 2 mg tablet 2 mg PO BID 07/03/23 02/08/24 History oxcarbazepine 600 mg tablet 600 mg PO BID 07/03/23 02/08/24 History dextroamphetamine-amphetamine 20 20 mg PO .EVERY AFTERNOON 02/08/24 02/08/24 History mg tablet L.acidop,casei,lactis,rham-B.lact,misael 1 cap PO DAILY #7 caps 02/13/24 Rx 625 mg (10 billion cell) capsule (Advanced Probiotic) cefadroxil 500 mg capsule 1,000 mg (2 x 500 mg) PO BID #7 02/13/24 Rx caps oxycodone 5 mg tablet 5 mg PO Q6H PRN pain #16 tabs 02/13/24 Rx pantoprazole 40 mg tablet,delayed 40 mg PO DAILY #30 tabs 02/13/24 Rx release prednisone 50 mg tablet 50 mg PO DAILY #30 tabs 02/13/24 Rx terbinafine HCl 1 % topical cream 1 applic EXT BID #15 grams 02/13/24 Rx Hospital Stay Data Consultations 02/04/24 16:43 ED Decision to Admit Stat 02/04/24 17:17 Consult General Surgery Routine Consult Rheumatology Routine 02/04/24 17:20 Consult Dermatology Routine 02/06/24 13:11 Consult Infectious Diseases Routine Pending Results Patient Have Any Pending Studies at Discharge: No Discharge Instructions Given to Patient (Per Discharging Provider) Gab Nolasco were admitted on February 04, 2024 after you started to develop skin changes in your mouth, aerola, hands, feet, lips, nose, torso and genitals leading to difficulty with eating. You presented to the ER on 01/23 and were prescribed a course of steroids; however, you reported that the skin lesions worsened and escalated. You reported that you were diagnosed with Behcet's Disease in 2019 and were placed on prednisone and antibiotics receiving additional care at [facility]. You were seen by Rheumatology while you were hospitalized on 02/03. A wound culture and skin biopsies were obtained (see below for details) Throughout the hospitalization, your ulcerations have shown improvement, are less inflamed and appear to be crusting over. Eating has become less challenging for you. MEDICATION CHANGES: 1. You will continue to take Prednisone 50 mg daily until otherwise instructed by your PCP or a specialist. 2. You will continue to use the topical cream Terbinafine 1% to be applied twice daily to the groin and scrotal area for a total duration of 2 weeks. 3. You will continue your oral antibiotic Cefadroxil 1,000 mg orally twice daily for through 02/16/23. 4. You were prescribed a medication, Pantoprazole 40mg by mouth daily, to protect your stomach while you are on your prednisone therapy. 5. You were prescribed a short course of pain medication to help assist with your discomfort. It is also recommended that you use over the counter Tylenol as needed. SUMMARY OF TEST RESULTS: A wound culture was obtained and was positive for pseudomonas and MSSA. Skin biopsies were obtained and the specimens were consistent with bacterial infection, correlating with would culture and the following pathology report: * Punch biopsy with extensive intracorneal acute inflammation with features suggestive of a corneal pustule is seen. The dermis reveals mild perivascular lymphocytic inflammation without eosinophiles. * PASF stains in search of fungal hyphae and spores are performed on both parts A and B and the stains are negative. * Please note that the changes of pyoderma gangrenosum, one of the skin manifestations of Behcet's syndrome, is not seen. "In light of the culture results from the skin lesion of the penis, these two current specimens are best considered intracorneal pustules related to a bacterial infection. If the lesions continue, it is recommended that you have a repeat biopsy with a piece of skin placed into Iris's media for direct immunofluorescence studies should be strongly considered." You had additional numerous laboratory work obtained including HIV, Herpes Simplex Virus, STD's including gonorrhea which were negative. RECOMMENDATIONS FOR FOLLOW-UP: 1. It is recommended that you attend the following appointment with DERMATOLOGY on February 15 at 8:[address] Hawkins at [address] 2. It is strongly recommended that you follow up with [facility] Rheumatology upon discharge. Your primary care Provider will need to make a referral for this. 3. Please establish with a new Primary Care Provider. An appointment has been made with Dr. Izzy Pandey at the [facility] on 02/16/23 @ 3:20 p.m. Please arrive 15 minutes prior to your appointment. OTHER INSTRUCTIONS: Seek medical attention if you have: * temperature above 101 * chest pain or trouble breathing * abdominal pain, nausea, vomiting * diarrhea, dark stools or bloody stools * any unanswered questions or concerns Call 911 if symptoms are severe. Please take good care of yourself. It has been a pleasure taking care of you. Please take care of yourself. If you have any questions regarding your recent hospitalization please contact [facility] and request Yesenia Araujo @ [phone]. Total Time Total Time Spent Total Time Spent (In Minutes): 45 minutes Supervising Physician Co-Signing Physician Notes Attending addendum: The patient was seen and examined in medical floor He has been much better today and denies any significant pain He is being able to eat and drink and also able to put clothes without any significant pain and or discomfort On examination Sitting on a chair without any acute distress Remains hemodynamically stable with unremarkable physical examination except widespread skin rash as mentioned before His medications include Behcet's disease generalized skin rash and ulceration ADHD Remains medically stable to be discharged-strongly advised to take the medications and keep follow-up appointments with healthcare providers Reviewed with assessment plan as outlined above by Annmarie Garza PA-C and take the full responsibility of care in the hospital. Dr Berna Kirkland
[2024-02-13 15:21] VITALS: BP 131/81; PULSE 91; RESP 14; TEMP 97.2; O2SAT 98
== END 2024-02-13 16:03 | disposition home or self-care (01) | DRG 546 ==
LOC: ED 14:47 → SUATTDRO 17:28 → EDINP 17:28 → 4W 18:39 → 3E 02-09 11:17